=== PATIENT | female | born 1950 | race Caucasian/White ===

== ENCOUNTER → 2021-04-17 15:07 | Outpatient (CLI) | payer OTHER, MEDICARE, SELFPAY ==
--- NOTE | ~2021-04-17 | MM_ITS ---
EXAMINATION: MM screening rodrigo BI w benedicto HISTORY: Screening mammogram TECHNIQUE: Craniocaudal and mediolateral oblique 3-D tomosynthesis images were obtained and synthetic 2-D images were generated. CAD analysis was submitted and interpreted. COMPARISON: 12/07/2011 bilateral screening mammogram BREAST PARENCHYMAL COMPOSITION: The breasts are almost entirely fatty. FINDINGS: There is no evidence of suspicious mass, calcification, or architectural distortion to sugg est malignancy in either breast. There has been no suspicious interval change. IMPRESSION: 1. No mammographic evidence of malignancy. 2. Recommend routine screening mammography in one year. BI-RADS Category 1: Negative Reviewed, dictated and finalized at location A. TY LEAD
== END ==
PROVIDERS: PCP Family Medicine; Visit Provider Family Medicine
DX: Z12.31 Encounter for screening mammogram for malignant neoplasm of breast (principal)
CPT/HCPCS: 77063; 77067

== ENCOUNTER → 2023-06-12 10:34 | Outpatient (CLI) | payer OTHER, MEDICARE, SELFPAY ==
--- NOTE | ~2023-06-12 | XR_ITS ---
XR chest 2V 06/12/2023 10:50 Indication: Wheezing Procedure: 2 view chest Comparison: 12/03/2017 Findings: There is a masslike density overlying the right hilum. Heart size normal. Left lung clear. No pleural effusion, edema or pneumothorax. Impression: 1: Masslike density overlying the right hilum. Correlation with CT chest with contrast recommended. Reviewed, dictated and finalized at location B. L RULE INSPECTOR Impression: 1: Masslike density overlying the right hilum. Correlation with CT chest with c ontrast recommended.
== END ==
PROVIDERS: PCP Nurse Practitioner Adult Health; Visit Provider Nurse Practitioner Adult Health
DX: R06.2 Wheezing (principal); R91.8 Other nonspecific abnormal finding of lung field
CPT/HCPCS: 71046

== ENCOUNTER 2023-06-20 07:30 | Outpatient (CLI) | payer OTHER, MEDICARE, SELFPAY ==
--- NOTE | ~2023-06-20 | CT_ITS ---
EXAMINATION: CT chest high resolution wo co DATE: 06/20/2023 07:50 INDICATION: Masslike density overlying right hilum reported on 06/12/2023 2 view chest radiograph. Cou gh for 1.5 weeks. Wheezing. TECHNIQUE: Computed tomography (CT) of the chest was performed without intravenous contrast. Automate d exposure control and iterative reconstruction technique were employed. Exam dose: 214.12 mGy-cm to dinesh exam DLP. COMPARISON: None FINDINGS: Borderline heart size. Thoracic aortic calcification; no thoracic aortic aneurysm. No hilar or mediastinal mass lesion or lymphadenopathy is detected. There is minimal atelectasis at the lung bases. 9.5 mm probable cyst of the lateral segment of the left hepatic lobe. Indeterminate approximately 10 x 16 mm hypoattenuating lesion of the peripheral lateral aspect of the right hepatic lobe. Normal morphology of the adrenal glands. Diffuse idiopathic skeletal hyperostosis of the thoracic spine. Degenerative disc disease in the incl uded lower cervical spine. No suspicious osteolytic or osteoblastic lesions. IMPRESSION: Minimal atelectasis at the lung bases Diffuse idiopathic skeletal hyperostosis of the thoracic spine 9.5 mm probable left hepatic cyst Indeterminate approximately 10 x 15 mm hypoattenuation of the lateral aspect of the right hepatic lob e; consider CT abdomen with IV contrast material. Reviewed, dictated and finalized at Location A. Reviewed, dictated and finalized at location L. CULATOR OPERATOR IMPRESSION: Minimal atelectasis at the lung bases Diffuse idiopathic skeletal hyperostosis of the thoracic spine 9.5 mm probable left hepatic cyst Indeterminate approximately 10 x 15 mm hypoattenuation of the lateral aspect of the right hepatic lobe; consider CT abdomen with IV contrast material.
== END 2023-06-20 07:31 | disposition home or self-care (01) ==
PROVIDERS: PCP Family Medicine; Visit Provider Nurse Practitioner Adult Health
DX: R91.8 Other nonspecific abnormal finding of lung field (principal); M48.14 Ankylosing hyperostosis [Forestier], thoracic region
CPT/HCPCS: 71250

== ENCOUNTER 2023-07-10 08:30 | Outpatient (CLI) | payer OTHER, MEDICARE, SELFPAY ==
--- NOTE | ~2023-07-10 | CT_ITS ---
EXAMINATION: CT chest abdomen w con INDICATION: Other nonspecific finding of the lung field, liver lesion on recent chest CT TECHNIQUE: Computed tomographic images of the chest and abdomen were obtained after the administratio n of 100 cc of Omnipaque 350 intravenous contrast. The dose-length product (DLP) was 631.68 mGy-cm. A utomated exposure control and iterative reconstruction technique were employed. COMPARISON: 06/20/2023 FINDINGS: Chest CT: There is mild dependent atelectasis of the lungs. The lungs are free of focal airspace opac ities. No pleural effusion or pneumothorax. No pathologically enlarged thoracic lymph nodes are ident ified. The heart size is normal. There is a 3 mm nodule of the left lower lobe on image 45. Abdomen CT: There is a 14 mm subcapsular cyst in the right hepatic lobe. An 11 mm cyst is noted in th e left hepatic lobe. The spleen, pancreas, gallbladder, and adrenal glands are normal. There is an 11 mm cyst of the right kidney. The left kidney is unremarkable. There are no pathologically enlarged a bdominal lymph nodes. No free intraperitoneal gas or evidence of bowel obstruction. There is question able wall thickening of the distal descending colon. There is severe lumbar spondylosis at L2-3. IMPRESSION: 1. Mild atelectasis of the lungs. 2. Cysts of the liver. 3. Questionable wall thickening of the distal descending colon. Recommend correlation with colonoscop y history or direct visualization if not performed recently. Reviewed, dictated and finalized at location B. K RATING IMPRESSION: 1. Mild atelectasis of the lungs. 2. Cysts of the liver. 3. Questionable wall thickening of the distal descending colon. Recommend corre lation with colonoscopy history or direct visualization if not performed recent ly.
[2023-07-10 08:57] LABS: Estimated Glomerular Filt Rate > 60
== END 2023-07-10 08:31 | disposition home or self-care (01) ==
LOC: ANHIMG 08:33
PROVIDERS: PCP Family Medicine; Visit Provider Nurse Practitioner Adult Health
DX: R91.8 Other nonspecific abnormal finding of lung field (principal); K76.89 Other specified diseases of liver
CPT/HCPCS: 71260; 74160; Q9967

== ENCOUNTER 2023-09-12 09:47 | Outpatient (CLI) | payer OTHER, MEDICARE, SELFPAY ==
--- NOTE | 2023-09-12 10:34 | ECG_ITS ---
SEE SCANNED COPY FOR CONFIRMED REPORT MTDD
[2023-09-12 10:41] LABS: Basophils Absolute Auto 0.1 K/mm3 (0.0-0.1); Basophils Percent Auto 0.8 % (0.2-1.2); Eosinophils Absolute Auto 0.2 K/mm3 (0-0.3); Eosinophils Percent Auto 2.7 % (0-4.4); Hemoglobin 14.9 g/dL (12.0-15.0); Immature Granulocyte Absolute 0.04 K/mm3 (0.00-0.031); Immature Granulocyte Percent A 0.5 % (0-0.5); Lymphocytes Absolute Auto 2.53 K/mm3 (0.9-3.2); Lymphocytes Percent Auto 32.6 % (18.3-44.2); Mean Corpuscular HGB Conc 31.7 g/dl (32-36); Mean Corpuscular Hemoglobin 29.9 pg (26-34); Mean Corpuscular Volume 94.4 fl (80-100); Mean Platelet Volume 9.5 fl (7.4-10.4); Monocytes Absolute Auto 0.5 K/mm3 (0.1-0.6); Monocytes Percent Auto 6.9 % (2.6-8.5); Neutrophils Absolute Auto 4.4 K/mm3 (1.3-6.7); Neutrophils Percent Auto 56.5 % (45.5-73.1); Platelet Count Result 303 k/mm3 (150-375); Red Blood Count 4.98 M/mm3 (4.2-5.4); Red Cell Distribution Width 13.5 % (11.5-14.5); White Blood Count 7.8 K/mm3 (4.5-10.0)
[2023-09-12 10:56] LABS: Anion Gap 8 mmol/L (4-12); Blood Urea Nitrogen 16 mg/dL (7-17); Calcium 10.6 mg/dL (8.4-10.2); Carbon Dioxide 31 mmol/L (22-30); Chloride 103 mmol/L (98-107); Estimated Glomerular Filt Rate > 60; Glucose 111 mg/dL (65-110); Potassium 4.3 mmol/L (3.4-5.0); Sodium 142 mmol/L (137-145)
[2023-09-12 12:26] LABS: Appearance Urine Clear (Clear); Bacteria Urine None Seen /hpf; Bilirubin Urine Negative (Negative); Blood Urine Negative (Negative); Color Urine Dark Yellow (Yellow); Glucose Urine UA Negative (Negative); Ketones Urine Trace mg/dL (Negative); Leukocyte Esterase Ur 1+ LEU/UL (Negative); Nitrate Urine Negative (Negative); Non Pathogenic Casts 0-2; Protein Urine Negative (Negative); RBC Urine 0-2 /hpf (0-2); Specific Grav Ur 1.025 (1.001-1.035); Squamous Epithelial Cell Urine Occasional /hpf (Few); Urobilinogen Urine 0.2 mg/dL (<2.0); pH Urine 5.5 (5.0-9.0)
[2023-09-12 12:47] LABS: Add Urine Microscopic? YES
== END 2023-09-12 09:48 | disposition home or self-care (01) ==
LOC: ANHLAB 09:53
PROVIDERS: PCP Family Medicine; Visit Provider Nurse Practitioner Family
DX: R53.83 Other fatigue (principal); I10 Essential (primary) hypertension; K76.9 Liver disease, unspecified; R05.9 Cough, unspecified
CPT/HCPCS: 36415; 80048; 81001; 85025; 87086; 93005

== ENCOUNTER 2023-10-10 07:00 | Day surgery (SDC) | payer OTHER, MEDICARE, SELFPAY ==
[2023-07-17 08:28] VITALS: BMI 36.9
[2023-09-25 14:21] VITALS: BMI 37.6
--- NOTE | 2023-10-09 14:53 | WPDANESEPPF ---
Anes - Initial Pre Proc Eval Procedure: Operation Date: 10/10/23 09:30 Proposed Procedures p Diagnostic Colonoscopy - Claudy Zhao MD Date/Time: 10/09/23 14:53 Surgeon: Claudy Zhao MD Pre Op Diagnosis: Disease of Intestine, Unspecified Patient Data Age: 72 Gender: F Height: 1.52 m Weight: 87.5 kg Allergies Allergy/AdvReac Type Severity Reaction Status Date / Time No Known Allergies Allergy Unknown Verified 10/10/23 08:01 Home Medications Medication Instructions Recorded Confirmed Type albuterol sulfate 90 mcg/actuation 2 inh inhalation Q4H PRN shortness 04/03/23 10/10/23 Rx aerosol inhaler (ProAir HFA) of breath or wheezing #6.7 grams ascorbic acid (vitamin C) 500 mg 500 mg PO DAILY 09/25/23 10/10/23 History capsule calcium 500 mg tablet 500 mg PO DAILY 09/25/23 10/10/23 History ibuprofen 400 mg tablet 400 mg PO Q6H PRN Pain 09/25/23 10/10/23 History yizefitv-jbk-abhd 18 mg-FA 400 1 tablet PO DAILY 09/25/23 10/10/23 History mcg-calcium 500 mg-vit K 50 mcg tablet (Women's Multivitamin) Patient hx anesthesia problems: none Family hx anesthesia problems: none Results Review: All pre-operative results and documents have been reviewed as part of the pre-operative evaluation. [facility] Past Medical History Medical History (Updated 10/10/23 @ 08:50 by Gustabo Galicia, ) Colon wall thickening Cough History of fracture of left ankle 2018 Mass of hilum Other fatigue Primary osteoarthritis of right knee Wheezing Surgical History Surgical History History of total left knee replacement 10/27/2014 History of total right hip arthroplasty 10/15/2012 Presence of left artificial knee joint Presence of right artificial hip joint Family History Family History Sibling Family history of premature coronary heart disease Other Cerebrovascular accident Family history of arthritis Family history of malignant neoplasm Social History Social History Smoking status: Never smoker Alcohol intake: current Substance use type: does not use Living arrangements: with family Occupation/Education: occupation 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
[2023-10-10 08:04] VITALS: BP 159/80; PULSE 72; RESP 16; TEMP 36.4; O2SAT 97
[2023-10-10] MEDS: LACTATED RINGERS 1,000 ML 150 ML IV CONT (08:31)
--- NOTE | 2023-10-10 09:05 | PM.HPGS ---
History of Present Illness History of Present Illness Consent: Risks, benefits, and alternatives have been discussed and questions answered. Patient agrees to proceed with procedure. Chief complaint: Disease of Intestine, Unspecified Narrative: Lanie Ho is a 72 year old female referred for colonoscopy. Recent colonoscopy suggested thickening of the descending colon. Patient reports that she became somewhat short of breath. seen and evaluated by CT scan which raised the question of thickening of the colon. Patient notes occasional loose stools but has no bleeding. No abdominal pain. Weight has remained stable. In general her bowel habits are normal. Patient is identified as having benign liver cysts on CT scan. Patient reports that her shortness of breath is now improved and is back to baseline. She was given no specific diagnosis for her shortness of breath. Review of Systems Review of Systems: All systems reviewed & are unremarkable except as noted in HPI and below PMFSH Past Medical History Medical History (Updated 10/10/23 @ 09:07 by Claudy Zhao MD) Colon wall thickening Cough History of fracture of left ankle 2018 Mass of hilum Other fatigue Primary osteoarthritis of right knee Wheezing Surgical History Surgical History History of total left knee replacement 10/27/2014 History of total right hip arthroplasty 10/15/2012 Presence of left artificial knee joint Presence of right artificial hip joint Family History Family History Sibling Family history of premature coronary heart disease Other Cerebrovascular accident Family history of arthritis Family history of malignant neoplasm Social History Social History Smoking status: Never smoker Alcohol intake: current Substance use type: does not use Living arrangements: with family Occupation/Education: occupation 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[employer] Gender identity (if verbalized by the patient): Female Spiritual care concerns: No Meds Home Medications and Allergies Home Medications Medication Instructions Recorded Confirmed Type albuterol sulfate 90 mcg/actuation 2 inh inhalation Q4H PRN shortness 04/03/23 10/10/23 Rx aerosol inhaler (ProAir HFA) of breath or wheezing #6.7 grams ascorbic acid (vitamin C) 500 mg 500 mg PO DAILY 09/25/23 10/10/23 History capsule calcium 500 mg tablet 500 mg PO DAILY 09/25/23 10/10/23 History ibuprofen 400 mg tablet 400 mg PO Q6H PRN Pain 09/25/23 10/10/23 History vsgwxezx-rjk-uxht 18 mg-FA 400 1 tablet PO DAILY 09/25/23 10/10/23 History mcg-calcium 500 mg-vit K 50 mcg tablet (Women's Multivitamin) Allergies Allergy/AdvReac Type Severity Reaction Status Date / Time No Known Allergies Allergy Unknown Verified 10/10/23 08:01 Vital Signs Vital Signs - 24 hr 10/10/23 08:04 Temperature 97.5 F L Pulse Rate 72 Respiratory Rate 16 Blood Pressure 159/80 H Pulse Oximetry 97 Oxygen Delivery Room Air Exam Narrative: Physical exam reveals patient to be alert. Vital signs stable. HEENT exam is unremarkable. Patient is anicteric. Lungs are clear to auscultation and percussion is without murmur or extra sounds. Abdomen bowel sounds are present soft nontender with no organomegaly. Digital external rectal exam normal. Assessment and Plan Assessment and plan (1) Screening for colon cancer: Code(s): Z12.11 - Encounter for screening for malignant neoplasm of colon Status: Acute Assessment and Plan: His for neoplasia screening performed. Previous exams were unremarkable. (2) Abnormal CT scan, colon: Code(s): R93.3 - Abnormal findings on diagnostic imaging of other parts of digestive tract Status: Acute Assessment and Plan: Thickening to
[2023-10-10 10:15] VITALS: BP 102/75; PULSE 85; RESP 14; O2SAT 99
[2023-10-10 10:25] VITALS: BP 111/74; PULSE 79; RESP 16; O2SAT 97
--- NOTE | 2023-10-10 14:11 | WPDANESPN ---
Anes - Prog Note Post-Op Date/Time: 10/10/23 14:11 Cardiovascular status: normal Respiratory status: normal Airway patency: baseline Mental status: baseline Post-Op hydration status: normal Vital Signs: Last Vital Signs Temp 36.4 C L 10/10/23 08:04 Pulse 79 10/10/23 10:25 Resp 16 10/10/23 10:25 BP 111/74 10/10/23 10:25 Pulse Ox 97 10/10/23 10:25 O2 Del Method Room Air 10/10/23 10:25 Pain Score (VAS): 0 I/O: Intake & Output 10/09/23 10/10/23 10/10/23 23:59 07:59 15:59 Intake Total 350 Balance 350 Post-procedural complaints: none Patient Feedback: Patient satisfied with anesthetic care. Other Findings: Patient vital signs back to baseline. Patient denies nausea and vomiting. Patient's pain under control. Patient OK for discharge.
== END 2023-10-10 10:40 | disposition home or self-care (01) ==
PROVIDERS: PCP Family Medicine; Visit Provider Internal Medicine Gastroenterology
PROC: 0DJD8ZZ Inspection of Lower Intestinal Tract, Via Natural or Artificial Opening Endoscopic (ICD-10-PCS; CPT 45378; principal; 2023-10-10 09:30)
DX: R93.3 Abnormal findings on diagnostic imaging of other parts of digestive tract (principal); K57.30 Diverticulosis of large intestine without perforation or abscess without bleeding; K64.8 Other hemorrhoids
CPT/HCPCS: 45378

== ENCOUNTER 2023-10-23 07:49 | Outpatient (CLI) | payer OTHER, MEDICARE, SELFPAY ==
[2023-10-23 09:19] LABS: INR 0.9; Prothrombin Time 12.8 Seconds (11.1-14.7)
[2023-10-23 09:20] LABS: Partial Thromboplastin Time 26.4 Seconds (22.3-36.8)
[2023-10-23 09:22] LABS: Albumin Level 4.3 g/dL (3.5-5.1)
[2023-10-23 09:30] LABS: Urine Cotinine NEGATIVE
[2023-10-23 10:39] LABS: MRSA (PCR) NOT DETECTED (NOT DETECTE)
[2023-10-23 10:44] LABS: Hemoglobin A1C 5.9 % (<5.7)
== END 2023-10-23 07:50 | disposition home or self-care (01) ==
LOC: ANHSURGERY 07:54
PROVIDERS: PCP Family Medicine; Visit Provider Orthopaedic Surgery
DX: Z01.818 Encounter for other preprocedural examination (principal); M17.11 Unilateral primary osteoarthritis, right knee
CPT/HCPCS: 80307; 82040; 83036; 85610; 85730; 87641

== ENCOUNTER 2023-11-06 00:27 | Day surgery (SDC) | payer OTHER, MEDICARE, SELFPAY ==
[2023-10-23 08:01] VITALS: BMI 37.0
[2023-10-23 08:08] VITALS: BP 173/74; PULSE 62; RESP 16; TEMP 37.1; O2SAT 95
--- NOTE | 2023-10-23 08:18 | PC.NURSE ---
Report to the Outpatient Waiting Room, entrance under the green pavilion located off [facility], at time __8:30AM on date __11/06/23 . Planned Procedure Time: ___10:30AM . Time changes happen often and if your time is changed the preop area will call you the afternoon before. - You and your visitor will be asked to self-screen and do not enter if you have any COVID symptoms. - A mask is optional within the hospital at this time. Patients may have clear liquids (water, carbonated beverages, clear teas, apple juice) until 3 hours prior to surgery with a maximum of 20 ounces. - No food from midnight until time of surgery. Take the following medications with a SIP of water the morning of surgery: ___ALBUTEROL INHALER NEEDED DO NOT STOP ANY OF YOUR OTHER PRESCRIPTION MEDICATIONS PRIOR TO SURGERY ?EXCEPT THE FOLLOWING Medications to discontinue per physician ___HOLD IBUPROFEN/NSAID 7 DAYS PRE-OP- LAST DOSE 10/29/23 HOLD ALL VITAMINS/SUPPLEMENTS 3 DAYS PRE-OP PER ANESSTHESIA- LAST DOSE 11/02/23 Please no make-up, nail thai, hairspray, perfume, deodorant, or body powder the day of surgery. No jewelry (including any body piercings) or valuables the day of surgery, leave them at home. Please take a shower or bath the night before, or the morning of, surgery with an antibacterial soap. Wear comfortable, loose fitting clothing. - Jewelry must be removed prior to entering the operating room. Rings and piercings that are not removed may be cut off. - The hospital will not accept responsibility for valuables. - Please leave all valuables, including medications, at home the day of surgery. If you are going home after surgery, a licensed goat driver must drive you home. - NO public transportation without another adult if you receive anesthesia. - We recommend that an adult stay with you for 24 hours following discharge. - We also recommend that you do not drive, make important decision, drink alcoholic beverages, or take any drugs that were not prescribed by your health care provider for at least 24 hours after your discharge time. Follow any additional instructions given to you from your surgeon. If you or anyone in your household have experienced Covid symptoms in the past week, please notify your surgeon or the nurse liaison at the phone number below for possible testing. Telephone instructions given to ____PATIENT and asked if any additional questions and then verbalized understanding. Patient advised to call surgeon office or pre surgery nurse liaison [phone] if any additional questions.
[2023-11-06] VITALS (21 sets, daily range): BP systolic 116–164; BP diastolic 56–91; PULSE 64–90; RESP 12–19; TEMP 36.2–36.6; O2SAT 92–100
--- NOTE | ~2023-11-06 | XR_ITS ---
EXAMINATION: [id number] DATE: 11/06/2023 12:45 INDICATION: Total right knee arthroplasty. Postop. TECHNIQUE: 2 views of right knee were obtained. COMPARISON: None. FINDINGS: There is a total right knee arthroplasty without patellar resurfacing in near-anatomic alig nment. No fracture. There is gas in the knee joint and soft tissues, consistent with recent surgery. Anterior skin rozina are noted. IMPRESSION: 1. Total right knee arthroplasty in near-anatomic alignment. Reviewed, dictated and finalized at location A.
--- NOTE | 2023-11-06 07:10 | WPDHPUPDATE1 ---
History and Physical Update Update Date/Time: 11/06/23 07:10 History and Physical has been reviewed, including an updated exam of the patient. There are NO changes in the patient's condition. Risks, benefits, and alternatives have been discussed and questions answered. Patient agrees to proceed with procedure.
[2023-11-06] MEDS: ACETAMINOPHEN 500 MG TABLET 1000 MG PO (09:25)
[2023-11-06] MEDS: TRANEXAMIC ACID 1,000MG/ISO100 1,000 MG/100 ML BAG 200 MG IVPB (09:30)
[2023-11-06] MEDS: LACTATED RINGERS 1,000 ML 30 ML IV CONT ×2 (09:30→12:13)
--- NOTE | 2023-11-06 09:34 | WPDANESEPPF ---
Anes - Initial Pre Proc Eval Procedure: Operation Date: 11/06/23 10:30 Proposed Procedures p Right Total Knee Arthroplasty - Dominick Baron MD Date/Time: 11/06/23 09:34 Surgeon: Dominick Baron MD Pre Op Diagnosis: right knee oa Patient Data Age: 73 Gender: F Height: 1.52 m Weight: 84.4 kg Last Vital Signs Temp 37.1 C 10/23/23 08:08 Pulse 62 10/23/23 08:08 Resp 16 10/23/23 08:08 BP 173/74 H 10/23/23 08:08 Pulse Ox 95 10/23/23 08:08 O2 Del Method Room Air 10/23/23 08:08 Allergies Allergy/AdvReac Type Severity Reaction Status Date / Time No Known Allergies Allergy Verified 11/06/23 08:56 Home Medications Medication Instructions Recorded Confirmed Type albuterol sulfate 90 mcg/actuation 2 inh inhalation Q4H PRN shortness 04/03/23 11/01/23 Rx aerosol inhaler (ProAir HFA) of breath or wheezing #6.7 grams ascorbic acid (vitamin C) 500 mg 500 mg PO DAILY 09/25/23 11/06/23 History capsule ibuprofen 400 mg tablet 600 mg PO Q6H PRN Pain 09/25/23 11/06/23 History nuwkpjar-qof-tbjl 18 mg-FA 400 1 tablet PO DAILY 09/25/23 11/06/23 History mcg-calcium 500 mg-vit K 50 mcg tablet (Women's Multivitamin) acetaminophen 500 mg tablet 1,000 mg PO Q6H PRN Pain 10/23/23 11/01/23 History (Acetaminophen Extra Strength) calcium 600 mg capsule 600 mg PO BID 10/23/23 11/06/23 History Patient hx anesthesia problems: none Family hx anesthesia problems: none Results Review: All pre-operative results and documents have been reviewed as part of the pre-operative evaluation. [facility] Past Medical History Medical History Colon wall thickening Cough History of fracture of left ankle 2018 Mass of hilum Other fatigue Primary osteoarthritis of right knee Wheezing Surgical History Surgical History History of total left knee replacement 10/27/2014 History of total right hip arthroplasty 10/15/2012 Presence of left artificial knee joint Presence of right artificial hip joint Family History Family History Sibling Family history of premature coronary heart disease Other Cerebrovascular accident Family history of arthritis Family history of malignant neoplasm Social History Social History Smoking status: Never smoker Alcohol intake: current Substance use type: does not use Living arrangements: with family Additional living arrangements comments: Occupation/Education: occupation 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 Informed Consent: The patient's anesthetic plan and its attendant risks and benefits were discussed with the patient/family/POA. Questions were solicited and answers provided to the satisfaction of the patient/family/POA.
--- NOTE | 2023-11-06 10:10 | WPDANESPNB ---
Anes - Peripheral Nerve Block Date/Time: 11/06/23 10:10 I have discussed with the patient/family/POA the placement of a peripheral nerve block for post-operative pain management, including associated risks, benefits, complications, and side effects. Alternative methods of post-operative analgesia were detailed. Questions were solicited and answers provided to the satisfaction of the patient/family/POA. Time-Out: A pre-procedural Time-Out was completed immediately before starting the procedure and confirmed: Patient Identification, Site, Procedure, Patient Position and the Availability of Requisite Equipment. Clinical Indications: Acute post-operative pain management requested by the operative surgeon. Nerve Block Insertion Note Anes-nerve block: adductor canal Patient position: supine Skin prep: chlorhexidine Needle: 22 gauge, stimulating, insulated echogenic needle. Needle length: 80 mm Technique: ultrasound Injectate: bupivacaine 0.5% with epi 5 mcg/ml (30cc - no epi) Observations: tolerated well Complications: none Procedure start time:: 1002 Procedure end time:: 1006
[2023-11-06] MEDS: ceFAZolin 2 GM/D5W 50 ML 2 GM/50 ML BAG IVPB ×2 (10:13→18:15)
[2023-11-06] MEDS: SODIUM CHLORIDE 0.9% IV 37.7 ML, MORPHINE SULFATE INJ (*CRX) 2 MG, ROPivacaine HCL 1% 2... INFILTRATE (10:48)
[2023-11-06] MEDS: TRANEXAMIC ACID 1,000 MG/10 ML AMPUL 1000 MG IV PUSH (11:24)
--- NOTE | 2023-11-06 12:22 | W.PM.PROC2 ---
Procedure Note - Detailed Date of Procedure 11/06/23 Pre-op Diagnosis right knee oa Post-op Diagnosis Same Procedure Performed R TKA Surgeon Dominick Baron MD Anesthesia General Description of Procedure THE RIGHT KNEE WAS PREPPED AND DRAPED IN THE STERILE FASHION. THERE WAS A 10 DEGREE FLEXION CONTRACTURE. A MIDLINE SKIN INCISION WAS MADE. A MEDIAL PARAPATELLAR ARTHROTOMY WAS MADE. THE PATELLA WAS EVERTED. THERE WAS TRICOMPARTMENT DJD. THERE WAS MINIMAL PATELLA DJD. AN INTRAMEDULLARY LIA WAS PLACED IN THE FEMUR. A DISTAL FEMORAL CUT WAS MADE IN 5 DEGREES OF VALGUS REMOVING APPROXIMATELY 9 MM OF BONE FROM THE DISTAL FEMUR. THE FEMUR WAS SIZED TO 62.5. A 62.5 FEMORAL CUTTING BLOCK WAS PLACED IN 3 DEGREES OF EXTERNAL ROTATION AND IN ALIGNMENT WITH RICARDO'S LINE AND THE TRANSEPICONDYLAR AXIS. ANTERIOR POSTERIOR AND CHAMFER CUTS WERE MADE. THE CUTS WERE EXCELLENT. NEXT AN INTRAMEDULLARY CUTTING GUIDE WAS PLACED IN THE TIBIA. A TRANS TIBIAL CUT WAS MADE ALONG THE LONG AXIS OF THE TIBIA. APPROXIMATELY 10 MM OF BONE WAS REMOVED FROM THE HIGH SIDE OF THE TIBIA. THE TIBIA WAS THEN PLANED TO A SMOOTH SURFACE. POSTERIOR FEMORAL OSTEOPHYTES WERE REMOVED FROM THE FEMORAL CONDYLES. A 63 TIBIAL TRIAL WAS PLACED IN ALIGNMENT WITH THE 1/3 MEDIAL ASPECT OF THE TIBIAL TUBERCLE. THEN A 62.5 FEMORAL TRIAL COMPONENT WAS PLACED. BOTH HAD EXCELLENT FITS. EVENTUALLY A 10 MM POLYETHYLENE TRIAL COMPONENT WAS PLACED. THE KNEE WAS TAKEN THROUGH A RANGE OF MOTION. THE KNEE CAME OUT TO FULL EXTENSION. THERE WAS NO ABNORMAL TILT TO THE PATELLA. THERE WAS GOOD A/P AND VARUS/VALGUS STABILITY. THERE WAS NO EXCESSIVE ROLL BACK WITH FLEXION. THE TRIAL COMPONENTS WERE REMOVED. THEN A 62.5 FEMORAL COMPONENT AND 63 TIBIAL COMPONENT WITH A 10 POLYETHYLENE COMPONENT WERE CEMENTED INTO PLACE. ONCE THE CEMENT WAS HARD THE KNEE WAS TAKEN THROUGH A ROM AGAIN AND FOUND TO BE STABLE WITH NO PATELLA TILT NO EXCESSIVE ROLL BACK WITH FLEXION AND GOOD STABILITY WITH COMPLETE AND FULL EXTENSION. THE KNEE WAS IRRIGATED WITH STERILE BETADINE AND WATER FOR ABOUT 3 MINUTES. THE BLEEDERS WERE CAUTERIZED. THE ARTHROTOMY WAS REPAIRED WITH NUMBER 1 VICRYL. THE SUB CUTANEOUS LAYER WITH 2-0 VICRYL AND THE SKIN WITH MARY. THE WOUND WAS WASHED AND A STERILE DRESSING WAS APPLIED. PATIENT WAS EXTUBATED. Estimated Blood Loss -100 Pathology None sent Complications No immediate complications Condition Stable Disposition PACU
[2023-11-06] MEDS: fentaNYL CITRATE INJ (*CRX) 100 MCG/2 ML VIAL 25 MCG IV PUSH ×4 (13:18→13:34)
[2023-11-06] MEDS: ONDANSETRON INJ 4 MG/2 ML VIAL IV PUSH (14:06)
--- NOTE | 2023-11-06 15:32 | ADMGEN ---
This patient, Lanie Ho, was admitted to [facility] S[facility] Room 305-02. Patient/family oriented to hospital policies and general routines including ID bracelet, bed and alarms, visiting hours, pain management, procedures, bathroom and other care routines, personal items, smoking policy, room service/diet, and visiting hours. Information on how to activate the Rapid Response Team has been discussed. Patient/Family are encouraged to report perceived risks to care and to ask questions if they do not understand what they are told or what they should do.
[2023-11-06] MEDS: KETOROLAC 15 MG/ML VIAL (*BKC) IV PUSH (17:20)
[2023-11-06] MEDS: CALCIUM CARBONATE (OSCAL) 500 MG TABLET PO (17:21)
[2023-11-06] MEDS: SENNA/DOCUSATE SODIUM TABLET 2 TAB PO (17:21)
[2023-11-06] MEDS: FAMOTIDINE 20 MG TABLET PO (21:39)
[2023-11-06] MEDS: ASPIRIN 325 MG ENTERIC TABLET PO (21:40)
[2023-11-07] MEDS: KETOROLAC 15 MG/ML VIAL (*BKC) IV PUSH ×3 (00:30→11:27)
[2023-11-07] MEDS: ceFAZolin 2 GM/D5W 50 ML 2 GM/50 ML BAG IVPB ×2 (02:59→09:47)
[2023-11-07 05:30] VITALS: BP 148/57; PULSE 66; RESP 16; TEMP 36.6; O2SAT 96
[2023-11-07 07:14] LABS: Basophils Percent Auto 0.2 % (0.2-1.2); Eosinophils Percent Auto 0.1 % (0-4.4); Hematocrit 38.2 % (37.0-47.0); Hemoglobin 12.4 g/dL (12.0-15.0); Immature Granulocyte Absolute 0.08 K/mm3 (0.00-0.031); Immature Granulocyte Percent A 0.5 % (0-0.5); Lymphocytes Absolute Auto 1.51 K/mm3 (0.9-3.2); Lymphocytes Percent Auto 9.3 % (18.3-44.2); Mean Corpuscular HGB Conc 32.5 g/dl (32-36); Mean Corpuscular Hemoglobin 30.3 pg (26-34); Mean Corpuscular Volume 93.4 fl (80-100); Mean Platelet Volume 9.6 fl (7.4-10.4); Monocytes Percent Auto 5.9 % (2.6-8.5); Neutrophils Absolute Auto 13.6 K/mm3 (1.3-6.7); Platelet Count Result 277 k/mm3 (150-375); Red Blood Count 4.09 M/mm3 (4.2-5.4); Red Cell Distribution Width 13.2 % (11.5-14.5); White Blood Count 16.2 K/mm3 (4.5-10.0)
[2023-11-07 07:27] LABS: Anion Gap 9 mmol/L (4-12); Blood Urea Nitrogen 14 mg/dL (7-17); Calcium 8.9 mg/dL (8.4-10.2); Carbon Dioxide 25 mmol/L (22-30); Chloride 106 mmol/L (98-107); Estimated CRCL calculation 54 ml/min; Estimated Glomerular Filt Rate > 60; Glucose 109 mg/dL (65-110); Potassium 3.9 mmol/L (3.4-5.0); Sodium 140 mmol/L (137-145)
[2023-11-07] MEDS: FAMOTIDINE 20 MG TABLET PO (08:15)
[2023-11-07] MEDS: ACETAMINOPHEN 500 MG TABLET 1000 MG PO (08:15)
[2023-11-07] MEDS: SENNA/DOCUSATE SODIUM TABLET 2 TAB PO (08:15)
[2023-11-07] MEDS: polyethylene glycoL 3350 17 GM POWD.PACK PO (08:15)
[2023-11-07] MEDS: ASCORBIC ACID 500 MG TABLET PO (08:15)
[2023-11-07] MEDS: ASPIRIN 325 MG ENTERIC TABLET PO (08:15)
[2023-11-07] MEDS: CALCIUM CARBONATE (OSCAL) 500 MG TABLET PO (08:15)
[2023-11-07 08:24] VITALS: BP 116/60; PULSE 61; RESP 16; TEMP 36.2; O2SAT 100
--- NOTE | 2023-11-07 11:36 | PM.PNORT ---
Progress Note: A&P Assessment and Plan (1) S/P total knee arthroplasty: Qualifiers: Laterality: right Qualified Code(s): Z96.651 - Presence of right artificial knee joint Code(s): Z96.659 - Presence of unspecified artificial knee joint Status: Acute Assessment and Plan: POD #1 : Right TKA Continue PT/OT. WBAT. Walker. HIGH FALL RISK. Continue pain control. Ice Knee. Protect skin. DVT prophylaxis with Aspirin. SCDs. Incentive Spirometry Use reviewed. Monitor Dressing. Change prior to discharge. Bowel Regimen. Dispo: Home with Home Health pending progress with PT/OT Plan Reviewed history, exam, radiographs and current labs with attending MD and covering surgeon, Dr. Baron, who agrees with current plan as indicated above. No further recommendations from Dr. Baron at this time. Subjective Subjective Date/Time Seen: 11/07/23 11:36 Post Op day: 1 Interval history: POD #1: Right TKA Patient doing very well. Pain well controlled. Fatigued from being out of bed in the chair for 5 hours, but overall feeling confident for discharge hopefully today. No new concerns. Review of Systems Review of Systems: All systems reviewed & are unremarkable except as noted in HPI and below Constitutional: Constitutional: Denies fever(s) and Denies headache(s) ENT: Denies headache(s) Cardiovascular: Cardiovascular: Denies chest pain, Denies diaphoresis, Denies palpitations and Denies dyspnea Respiratory: Respiratory: Denies dyspnea Gastrointestinal: Gastrointestinal: Denies abdominal pain, Denies constipation, Denies nausea and Denies vomiting Genitourinary: Genitourinary: Reports nocturia and Denies dysuria Musculoskeletal: Musculoskeletal: Reports arthralgias (Right Knee ) and Reports joint swelling (Right Knee ) Neurologic: Denies headache(s) Endocrine: Endocrine: Denies palpitations Exam Const: General: comfortable and no acute distress Resp: Effort & Inspection: normal respiratory effort Cardio: Rate: regular rate Rhythm: regular rhythm GI: GI Palp: Yes Soft to palpation, No Tenderness to palpation present (GI) and No Guarding due to palpation present (GI) Skin: General skin exam: wounds noted Wounds: wounds noted Other: Incision c/d/i. No surrounding redness/warmth. No hematoma. Mild ecchymosis. No wound dehiscence Neuro: Cognition (Neuro): normal cognition Other: NV intact aside from block. Moves toes. Sensation intact to light touch. +ankle dorsiflexion/plantarflexion. Extrem: Right lower extremity: normal to inspection, knee Details: tenderness (diffuse, mild ) Location: of the patella, swelling (diffuse, consistent with surgical intervention ), abnormal ROM Details: pain with active ROM during, pain with passive ROM during and with range as follows (limited due to recent surgical intervention ); able to extend lower leg actively and ecchymosis (mild ), lower leg (Negative Brent's Sign ) Details: normal to inspection; no erythema and no tenderness, ankle (+ankle dorsiflexion/plantarflexion ) Details: normal to inspection, no edema and normal ROM; no tenderness, no swelling and no ecchymosis and foot Details: normal capillary refill, normal to inspection, vascular exam Details: dorsalis pedis pulse present and motor-sensory exam Details: light-touch normal; no tenderness Left lower extremity: normal to inspection Psych: Mental Status: mental status grossly normal Objective Data Vital Signs Vital Signs: Vital Signs - 24 hr 11/06/23 12:13 11/06/23 12:25 11/06/23 12:35 Temperature 36.2 C L Pulse Rate 89 76 77 Respiratory Rate 12 12 13 Blood Pressure 120/71 139/70 143/77 H Pulse Oximetry 97 97 98 Oxygen Delivery Simple Face Mask Simple Face Mask Simple Face Mask Oxygen Flow Rate 8 8 8 11/06/23 12:38 11/06/23 12:50 11/06/23 13:04 Temperature Pulse Rate 90 78 Respiratory Rate 19 14 Blood Pressure 164/72 H 158/73 H Pulse Oximetry 100 100
[2023-11-07 12:20] VITALS: BP 123/40; PULSE 66; RESP 16; TEMP 35.8; O2SAT 99
--- NOTE | 2023-11-07 12:39 | WPDANESPN ---
Anes - Prog Note Post-Op Date/Time: 11/07/23 12:39 Cardiovascular status: normal Respiratory status: normal Airway patency: baseline Mental status: baseline Post-Op hydration status: normal Vital Signs: Last Vital Signs Temp 35.8 C L 11/07/23 12:20 Pulse 66 11/07/23 12:20 Resp 16 11/07/23 12:20 BP 123/40 L 11/07/23 12:20 Pulse Ox 99 11/07/23 12:20 O2 Del Method Room Air 11/07/23 07:39 O2 Flow Rate 2 11/06/23 14:37 Pain Score (VAS): 07/27 I/O: Intake & Output 11/06/23 11/07/23 11/07/23 23:59 07:59 15:59 Intake Total 522 50 272 Balance 522 50 272 Laboratory Tests 11/07/23 06:23 11/07/23 06:23 11/07/23 06:23 WBC 16.2 H RBC 4.09 L Hgb 12.4 Hct 38.2 MCV 93.4 MCH 30.3 MCHC 32.5 RDW 13.2 Plt Count 277 MPV 9.6 Immature Gran % (Auto) 0.5 Neut % (Auto) 84.0 H Lymph % (Auto) 9.3 L [place] % (Auto) 5.9 Eos % (Auto) 0.1 Baso % (Auto) 0.2 Lymph # (Auto) 1.51 [place] # (Auto) 1.0 H Eos # (Auto) 0.0 Baso # (Auto) 0.0 Abs Immat Gran (auto) 0.08 H Absolute Neuts (auto) 13.6 H Absolute Nucleated RBC 0.000 Nucleated RBC % 0.0 Sodium 140 Potassium 3.9 Chloride 106 Carbon Dioxide 25 Anion Gap 9 BUN 14 Creatinine 0.80 Estim Creat Clear Calc 54 Estimated GFR > 60 Glucose 109 Calcium 8.9 Post-procedural complaints: none Patient Feedback: Patient satisfied with anesthetic care.
--- NOTE | 2023-11-07 13:47 | PM.DS ---
DS: Admitting Diagnosis Discharge Date 11/07/23 Admitting Diagnosis Right Knee DJD DS: Discharge Diagnosis Discharge Diagnosis (1) S/P total knee arthroplasty: Qualifiers: Laterality: right Qualified Code(s): Z96.651 - Presence of right artificial knee joint Code(s): Z96.659 - Presence of unspecified artificial knee joint Status: Acute Assessment and Plan: POD #1 : Right TKA Continue PT/OT. WBAT. Walker. HIGH FALL RISK. Continue pain control. Ice Knee. Protect skin. DVT prophylaxis with Aspirin. SCDs. Incentive Spirometry Use reviewed. Monitor Dressing. Change prior to discharge. Bowel Regimen. Dispo: Home with Home Health pending progress with PT/OT Plan Reviewed history, exam, radiographs and current labs with attending MD and covering surgeon, Dr. Baron, who agrees with current plan as indicated above. No further recommendations from Dr. Baron at this time. DS: Summary Hospital Course Reason for hospitalization: Right TKA Hospital Course: 73 year old female admitted s/p Right TKA for postoperative medical management, pain control and mobilization with PT/OT. Patient progressed well with PT/OT. Pain and vitals remained stable throughout. The patient has been cleared to be discharged home with home health at this time. All discharge care instructions reviewed at depth. New medications reviewed. Follow up planned for 3 weeks in the outpatient orthopedic clinic with Dr. Baron. Dr. Baron in agreement with safe discharge at this time. Status at Discharge Functional status at discharge: uses cane/walker Overall status at discharge: patient is progressing back to baseline Time Spent with Patient Time attestation: Total time spent providing and/or coordinating discharge services: Exam Const: General: comfortable and no acute distress Resp: Effort & Inspection: normal respiratory effort Cardio: Rate: regular rate Rhythm: regular rhythm Skin: General skin exam: wounds noted Wounds: wounds noted Other: Incision c/d/i. No surrounding redness/warmth. No hematoma. Mild ecchymosis. No wound dehiscence Neuro: Cognition (Neuro): normal cognition Other: NV intact aside from block. Moves toes. Sensation intact to light touch. +ankle dorsiflexion/plantarflexion. Extrem: Right lower extremity: normal to inspection, knee Details: tenderness (diffuse, mild ) Location: of the patella, swelling (diffuse, consistent with surgical intervention ), abnormal ROM Details: pain with active ROM during, pain with passive ROM during and with range as follows (limited due to recent surgical intervention ); able to extend lower leg actively and ecchymosis (mild ), lower leg (Negative Brent's Sign ) Details: normal to inspection; no erythema and no tenderness, ankle (+ankle dorsiflexion/plantarflexion ) Details: normal to inspection, no edema and normal ROM; no tenderness, no swelling and no ecchymosis and foot Details: normal capillary refill, normal to inspection, vascular exam Details: dorsalis pedis pulse present and motor-sensory exam Details: light-touch normal; no tenderness Left lower extremity: normal to inspection Psych: Mental Status: mental status grossly normal DS: Data Data Completed and Pending Labs on day of discharge: Labs from last 24 hours 11/07/23 06:23 WBC 16.2 H RBC 4.09 L Hgb 12.4 Hct 38.2 MCV 93.4 MCH 30.3 MCHC 32.5 RDW 13.2 Plt Count 277 MPV 9.6 Immature Gran % (Auto) 0.5 Neut % (Auto) 84.0 H Lymph % (Auto) 9.3 L [place] % (Auto) 5.9 Eos % (Auto) 0.1 Baso % (Auto) 0.2 Lymph # (Auto) 1.51 [place] # (Auto) 1.0 H Eos # (Auto) 0.0 Baso # (Auto) 0.0 Abs Immat Gran (auto) 0.08 H Absolute Neuts (auto) 13.6 H Absolute Nucleated RBC 0.000 Nucleated RBC % 0.0 Sodium 140 Potassium 3.9 Chloride 106 Carbon Dioxide 25 Anion Gap 9 BUN 14 Creatinine 0.80 Estim Creat Clear Calc 54 Estimated GFR > 60 Glucose 109 Calcium
== END 2023-11-07 14:10 | disposition home health service (06) ==
LOC: ANHSURGERY 08:40 → ANH3MEDSUR 14:41
PROVIDERS: PCP Family Medicine; Visit Provider Orthopaedic Surgery
PROC: (CPT 27447; principal; 2023-11-06 10:30)
DX: M17.11 Unilateral primary osteoarthritis, right knee (principal); G89.18 Other acute postprocedural pain; Z79.51 Long term (current) use of inhaled steroids; E66.9 Obesity, unspecified; Z68.36 Body mass index [BMI] 36.0-36.9, adult
CPT/HCPCS: 27447; 64447; 36415; 73560; 80048; 80307; 82040; 83036; 85025; 85610; 85730; 86850; 86900; 86901; 87641; 97110; 97161; 97165; 97535; A9270; C1713; C1776; J0171; J0690; J1100; J1170; J1200; J1596; J1885; J2250; J2270; J2405; J2704; J2795; J3010; J7120

== ENCOUNTER 2024-06-19 09:57 | Outpatient (CLI) | payer OTHER, MEDICARE, SELFPAY ==
--- OUTSIDE RECORDS SUMMARY | 2024-06-19 10:15 | XMS_ITS | Clinical Summary ---
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 Gender Identity Not on file Sexual Orientation Not on file Plan of Treatment Health Maintenance Due Date Last Done Comments DEXA Bone Density 1950 Hepatitis C Virus (HCV) Screening 1950 Colonoscopy 1997 Colorectal Cancer Screening 1997 Cologuard 2002 Immunochemical Fecal Occult Blood 2002 Mammogram 2002 Pneumococcal Immunization (5 0+ years) (1 of 1 - PCV) 2002 Zoster Immunization (1 of 2) 2002 Influenza Immunization (#1) 2024 SARS-COV-2 Immunization ( season) 2024 06/19/2021, 08/06/2020, 07/02/2020 Respiratory Syncytial Virus (RSV) Immunization (Adult) (1 - 1-dose 75+ series) 10/28/2027 DTaP/Tdap/Td Immunization Discontinued 02/06/2018 TdaP Immunization Completed 02/06/2018 Hepatitis B Immunization Aged Out No longer eligible based on patient's age to complete this topic Meningococcal Immunization (ACWY) Aged Out No longer eligible based on patient's age to complete this topic Rotavirus Immunization Aged Out No lo nger eligible based on patient's age to complete this topic Care Teams Concessions Manager Relationship Specialty Start Date End Date Ranjeet La MD [address] [address] PCP - General 05/22/07
--- NOTE | 2024-06-19 10:35 | ECG_ITS ---
Test Date: 2024-06-19 11:27:08 Measurements Intervals [place] Rate: 60 P: 33 AL: 173 QRS: -21 QRSD: 101 T: 28 QT: 413 QTc: 415 Interpretive Statements SINUS RHYTHM WITH OCCASIONAL SUPRAVENTRICULAR PREMATURE COMPLEXES BORDERLINE LEFT AXIS DEVIATION [QRS AXIS < -20] No previous ECG available for comparison Electronically Signed On 06-19-2024 14:39:35 CYLINDER LOADER by Марина Herrera M.D.
[2024-06-19 11:12] LABS: Add Urine Microscopic? YES; Appearance Urine Clear (Clear); Bacteria Urine None Seen /hpf; Bilirubin Urine Negative (Negative); Blood Urine Negative (Negative); Color Urine Yellow (Yellow); Glucose Urine UA Negative (Negative); Ketones Urine Negative (Negative); Leukocyte Esterase Ur 2+ LEU/UL (Negative); Nitrate Urine Negative (Negative); Protein Urine Negative (Negative); RBC Urine 0-2 /hpf (0-2); Squamous Epithelial Cell Urine Few /hpf (Few)
[2024-06-19 11:20] LABS: Basophils Absolute Auto 0.1 K/mm3 (0.0-0.1); Basophils Percent Auto 0.9 % (0.2-1.2); Eosinophils Absolute Auto 0.2 K/mm3 (0-0.3); Eosinophils Percent Auto 2.1 % (0-4.4); Hematocrit 45.4 % (37.0-47.0); Hemoglobin 14.5 g/dL (12.0-15.0); Immature Granulocyte Absolute 0.02 K/mm3 (0.00-0.031); Immature Granulocyte Percent A 0.2 % (0-0.5); Lymphocytes Absolute Auto 2.42 K/mm3 (0.9-3.2); Lymphocytes Percent Auto 29.8 % (18.3-44.2); Mean Corpuscular HGB Conc 31.9 g/dl (32-36); Mean Corpuscular Hemoglobin 29.5 pg (26-34); Mean Corpuscular Volume 92.3 fl (80-100); Mean Platelet Volume 9.9 fl (7.4-10.4); Monocytes Absolute Auto 0.6 K/mm3 (0.1-0.6); Monocytes Percent Auto 7.9 % (2.6-8.5); Neutrophils Absolute Auto 4.8 K/mm3 (1.3-6.7); Neutrophils Percent Auto 59.1 % (45.5-73.1); Platelet Count Result 279 k/mm3 (150-375); Red Blood Count 4.92 M/mm3 (4.2-5.4); Red Cell Distribution Width 13.2 % (11.5-14.5); White Blood Count 8.1 K/mm3 (4.5-10.0)
[2024-06-19 11:26] LABS: Anion Gap 13 mmol/L (4-12); Blood Urea Nitrogen 13 mg/dL (7-17); Calcium 10.4 mg/dL (8.4-10.2); Carbon Dioxide 26 mmol/L (22-30); Chloride 103 mmol/L (98-107); Estimated Glomerular Filt Rate > 60; Glucose 97 mg/dL (65-110); Potassium 4.1 mmol/L (3.4-5.0); Sodium 142 mmol/L (137-145)
== END 2024-06-19 09:58 | disposition home or self-care (01) ==
PROVIDERS: PCP Family Medicine; Visit Provider Nurse Practitioner Family
DX: R94.31 Abnormal electrocardiogram [ECG] [EKG] (principal); I10 Essential (primary) hypertension; R53.83 Other fatigue
CPT/HCPCS: 36415; 80048; 81001; 85025; 87086; 93005

== ENCOUNTER 2024-08-06 09:51 | Outpatient (CLI) | payer OTHER, MEDICARE, SELFPAY ==
--- NOTE | 2024-08-06 10:48 | ECG_ITS ---
Test Date: 2024-08-06 11:06:48 Measurements Intervals [place] Rate: 57 P: 80 WV: 145 QRS: -17 QRSD: 96 T: 7 QT: 413 QTc: 405 Interpretive Statements SINUS BRADYCARDIA WITH OCCASIONAL PAC Electronically Signed On 08-06-2024 12:12:02 CDT by Hemant Roth M.D.
[2024-08-06 11:30] LABS: Basophils Absolute Auto 0.1 K/mm3 (0.0-0.1); Basophils Percent Auto 0.7 % (0.2-1.2); Eosinophils Absolute Auto 0.2 K/mm3 (0-0.3); Eosinophils Percent Auto 2.1 % (0-4.4); Hematocrit 44.7 % (37.0-47.0); Hemoglobin 14.2 g/dL (12.0-15.0); Immature Granulocyte Absolute 0.02 K/mm3 (0.00-0.031); Immature Granulocyte Percent A 0.2 % (0-0.5); Lymphocytes Absolute Auto 2.55 K/mm3 (0.9-3.2); Lymphocytes Percent Auto 31.1 % (18.3-44.2); Mean Corpuscular HGB Conc 31.8 g/dl (32-36); Mean Corpuscular Hemoglobin 29.8 pg (26-34); Mean Corpuscular Volume 93.9 fl (80-100); Mean Platelet Volume 9.7 fl (7.4-10.4); Monocytes Absolute Auto 0.6 K/mm3 (0.1-0.6); Monocytes Percent Auto 7.3 % (2.6-8.5); Neutrophils Absolute Auto 4.8 K/mm3 (1.3-6.7); Neutrophils Percent Auto 58.6 % (45.5-73.1); Platelet Count Result 246 k/mm3 (150-375); Red Blood Count 4.76 M/mm3 (4.2-5.4); Red Cell Distribution Width 13.2 % (11.5-14.5); White Blood Count 8.2 K/mm3 (4.5-10.0)
[2024-08-06 11:42] LABS: Add Urine Microscopic? YES; Appearance Urine Clear (Clear); Bacteria Urine None Seen /hpf; Bilirubin Urine Negative (Negative); Blood Urine Negative (Negative); Color Urine Yellow (Yellow); Glucose Urine UA Negative (Negative); Ketones Urine Negative (Negative); Leukocyte Esterase Ur Trace LEU/UL (Negative); Nitrate Urine Negative (Negative); Non Pathogenic Casts 0-2; Protein Urine Negative (Negative); RBC Urine 0-2 /hpf (0-2); Specific Grav Ur 1.009 (1.001-1.035); Squamous Epithelial Cell Urine None Seen /hpf (Few); Urobilinogen Urine 0.2 mg/dL (<2.0); WBC Urine 0-5 /hpf (0-3)
[2024-08-06 11:45] LABS: Albumin Level 4.4 g/dL (3.5-5.1); Anion Gap 10 mmol/L (4-12); Blood Urea Nitrogen 15 mg/dL (7-17); Calcium 9.2 mg/dL (8.4-10.2); Carbon Dioxide 28 mmol/L (22-30); Chloride 101 mmol/L (98-107); Estimated Glomerular Filt Rate > 60; Glucose 99 mg/dL (65-110); Potassium 4.1 mmol/L (3.4-5.0); Sodium 139 mmol/L (137-145)
[2024-08-06 11:48] LABS: INR 0.9; Prothrombin Time 12.8 Seconds (11.1-14.7)
[2024-08-06 11:49] LABS: Partial Thromboplastin Time 26.7 Seconds (22.3-36.8)
[2024-08-06 11:51] LABS: Urine Cotinine NEGATIVE
[2024-08-06 12:42] LABS: Hemoglobin A1C 5.7 % (<5.7)
[2024-08-06 12:44] LABS: MRSA (PCR) NOT DETECTED (NOT DETECTE)
== END 2024-08-06 09:52 | disposition home or self-care (01) ==
LOC: ANHSURGERY 09:55
PROVIDERS: PCP Family Medicine; Visit Provider Orthopaedic Surgery
DX: Z01.818 Encounter for other preprocedural examination (principal); R00.1 Bradycardia, unspecified; M16.12 Unilateral primary osteoarthritis, left hip; I10 Essential (primary) hypertension
CPT/HCPCS: 80048; 80307; 81001; 82040; 83036; 85025; 85610; 85730; 86850; 86900; 86901; 87641; 93005

== ENCOUNTER 2024-08-17 09:30 | Outpatient (CLI) | payer OTHER, MEDICARE, SELFPAY ==
--- NOTE | 2024-08-17 09:33 | EST_ITS ---
Patient Info Name: Lanie Ho Age: 73 years : 1950 Gender: Female Ht: 60 in Wt: 164 lbs BSA: 1.81 m2 HR: 57 bpm BP: 134 / 78 mmHg Exam Date: 08/17/2024 9:47 AM Exam Location: Echo Lab Patient Status: Outpatient Admit Date: 08/17/2024 Staff Ordering Physician: Horace Paez MD Attending Provider: Horace Paez MD Exercise Technologist: trinity gimenez Exercise Physician: Tyrell Menard DO Exam Type: CA stress test treadmill Study Info Indications R00.1 - Bradycardia, unspecified A treadmill exercise stress test was performed. Summary 1. 1. Negative Joseph exercise stress test for ischemic ST changes by ECG criteria. 2. 2. Good functional capacity, achieving 7 METs of workload. 3. 3. Hypertensive response to exercise. 4. 4. Appropriate HR response to exercise. 5. 5. Appropriate HR recovery at 1 minute post exercise. 6. 6. No imaging with stress testing. 7. 7. Patient informed of the above results. Protocol: Joseph Stress ECG Details Stage: REST Duration (min): 0 min : 20 sec Speed (mph): 0.0 Grade (%): 0 HR (bpm): 55 SBP (mmHg): --- DBP (mmHg): --- METS: --- Stage: STAGE 1 Duration (min): 1 min : 0 sec Speed (mph): 1.7 Grade (%): 10 HR (bpm): 77 SBP (mmHg): 134 DBP (mmHg): 78 METS: --- Stage: STAGE 1 Duration (min): 2 min : 0 sec Speed (mph): 1.7 Grade (%): 10 HR (bpm): 97 SBP (mmHg): 134 DBP (mmHg): 78 METS: --- Stage: STAGE 1 Duration (min): 3 min : 0 sec Speed (mph): 1.7 Grade (%): 10 HR (bpm): 104 SBP (mmHg): 214 DBP (mmHg): 65 METS: --- Stage: STAGE 2 Duration (min): 1 min : 0 sec Speed (mph): 2.5 Grade (%): 12 HR (bpm): 117 SBP (mmHg): 214 DBP (mmHg): 65 METS: --- Stage: STAGE 2 Duration (min): 2 min : 0 sec Speed (mph): 2.5 Grade (%): 12 HR (bpm): 124 SBP (mmHg): 214 DBP (mmHg): 65 METS: --- Stage: RECOVERY Duration (min): 1 min : 0 sec Speed (mph): 0.0 Grade (%): 0 HR (bpm): 111 SBP (mmHg): 248 DBP (mmHg): 95 METS: --- Stage: RECOVERY Duration (min): 1 min : 34 sec Speed (mph): 0.0 Grade (%): 0 HR (bpm): 92 SBP (mmHg): 248 DBP (mmHg): 95 METS: --- Rest HR: 57 bpm Peak HR: 134 bpm Rest Sys BP: 134 mmHg Peak Sys BP: 248 mmHg Max Pred HR: 149 bpm % Max Pred HR: 90 % Target HR: 127 bpm Max RPP: 33,232 bpm*mmHg Valles Score: 1 BP Response: Patient exhibited a hypertensive response with stress Termination Reason: Reached target heart rate or workload Cardiac Symptoms: Shortness of breath Max ST Seg Deviation: 0.80 mm Total Time: 5 min : 0 sec Rest Batista BP: 78 mmHg Peak Batista BP: 95 mmHg Angina Score: None Total METS: 7.1 Resting ECG Sinus bradycardia. Stress ECG No ST changes. Arrhythmias None. Report Signatures
--- OUTSIDE RECORDS SUMMARY | 2024-08-17 10:22 | XMS_ITS | Clinical Summary ---
Author Organization 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
== END 2024-08-17 09:31 | disposition home or self-care (01) ==
LOC: ANHCARD 09:32
PROVIDERS: PCP Family Medicine; Visit Provider Family Medicine
DX: R00.1 Bradycardia, unspecified (principal); I10 Essential (primary) hypertension; R94.31 Abnormal electrocardiogram [ECG] [EKG]
CPT/HCPCS: 93017

== ENCOUNTER 2024-08-19 11:34 | Day surgery (SDC) | payer OTHER, MEDICARE, SELFPAY ==
[2024-08-06 10:06] VITALS: BMI 34.0
[2024-08-06 10:19] VITALS: BP 168/98; PULSE 56; RESP 16; TEMP 36.5; O2SAT 98
--- NOTE | 2024-08-06 10:35 | PC.NURSE ---
Report to the Outpatient Waiting Room, entrance under the green pavilion located off [facility], at time __0600am on date _08/19/24 . Planned Procedure Time: __0730am .? Time changes happen often and if your time is changed the preop area will call you the afternoon before. - You and your visitor will be asked to self-screen and do not enter if you have any COVID symptoms. Please call surgeon if you need to reschedule. - A mask is optional within the hospital at this time. Patients may have clear liquids (water, carbonated beverages, clear teas, apple juice) until 3 hours prior to surgery with a maximum of 20 ounces. - No food from midnight until time of surgery and no smoking, or chewing tobacco (or any form of nicotine). No chewing gum, candy or mints. (0430 am) Take only the following medications with a SIP of water on the morning of surgery: Tylenol if needed. DO NOT STOP ANY OF YOUR OTHER PRESCRIPTION MEDICATIONS PRIOR TO SURGERY EXCEPT THE FOLLOWING Hold all vitamins and supplements for 3 days per anesthesiologist. Date to take last dose____08/15/24 Please no make-up, nail german, hairspray, perfume, deodorant, or body powder the day of surgery.? No jewelry (including any body piercings) or valuables the day of surgery, leave them at home.? Please take a shower or bath the night before, or the morning of, surgery with an antibacterial soap.? Wear comfortable, loose fitting clothing.? HIBICLEANSE - Jewelry must be removed prior to entering the operating room.? Rings and piercings that are not removed may be cut off. - The hospital will not accept responsibility for valuables.? - Please leave all valuables, including medications, at home the day of surgery. If you are going home after surgery, a licensed local company intermodal truck driver must drive you home.? - NO public transportation without another adult if you receive anesthesia. - We recommend that an adult stay with you for 24 hours following discharge. - We also recommend that you do not drive, make important decision, drink alcoholic beverages, or take any drugs that were not prescribed by your health care provider for at least 24 hours after your discharge time. Follow any additional instructions given to you from your surgeon. Telephone instructions given to __Patient and asked if any additional questions and then verbalized understanding. Patient advised to call surgeon office or pre surgery nurse liaison [phone] if any additional questions.
[2024-08-19] VITALS (13 sets, daily range): BP systolic 110–154; BP diastolic 48–77; PULSE 33–83; RESP 12–18; TEMP 36.1–36.4; O2SAT 97–100
--- NOTE | ~2024-08-19 | XR_ITS ---
EXAMINATION: XR hip LT 1V DATE: 08/19/2024 10:52 INDICATION: Postoperative evaluation following left total hip arthroplasty TECHNIQUE: Anteroposterior view of the left hip was obtained. COMPARISON: 06/19/2024 FINDINGS: Interval placement of a left total hip arthroplasty which appears well seated in near anatomic alignm ent.The acetabular component is affixed with at least a single screw. Small amount of expected lucent soft tissue gas in the postoperative bed. No fractures identified. IMPRESSION: 1. Left total hip arthroplasty, negative for postoperative purposes. Reviewed, dictated and finalized at location A.
--- OUTSIDE RECORDS SUMMARY | 2024-08-19 00:47 | XMS_ITS | Clinical Summary ---
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
--- NOTE | 2024-08-19 06:41 | P.PNAN_ITS ---
Anes - Initial Pre Proc Eval Procedure: Operation Date: 08/19/24 07:30 Proposed Procedures p Left Total Hip Arthroplasty - Dominick Baron MD Date/Time: 08/19/24 06:41 Surgeon: Dominick Baron MD Pre Op Diagnosis: left hip oa Patient Data Age: 73 Gender: F Height: 1.52 m Weight: 77 kg Last Vital Signs Temp 36.4 C 08/19/24 06:30 Pulse 58 L 08/19/24 06:30 Resp 18 08/19/24 06:30 BP 153/61 H 08/19/24 06:30 Pulse Ox 97 08/19/24 06:30 O2 Del Method Room Air 08/19/24 06:30 Allergies Allergy/AdvReac Type Severity Reaction Status Date / Time No Known Allergies Allergy Verified 08/19/24 06:31 Home Medications ?Medication ?Instructions ?Recorded ?Confirmed ?Type ascorbic acid (vitamin C) 500 mg 500 mg PO DAILY 09/25/23 08/19/24 History capsule ibuprofen 400 mg tablet 600 mg PO Q6H PRN Pain 09/25/23 08/19/24 History [id number] 18 mg-FA 400 1 tablet PO DAILY 09/25/23 08/19/24 History mcg-calcium 500 mg-vit K 50 mcg tablet (Women's Multivitamin) acetaminophen 500 mg tablet 1,000 mg PO Q6H PRN Pain 10/23/23 08/19/24 History (Acetaminophen Extra Strength) calcium 600 mg capsule 600 mg PO BID 10/23/23 08/19/24 History chlorhexidine gluconate 4 % 1 applic topical DAILY #237 mL 08/07/24 08/19/24 Rx topical liquid (Hibiclens) Patient hx anesthesia problems: none Family hx anesthesia problems: none Results Review: All pre-operative results and documents have been reviewed as part of the pre- operative evaluation. [facility] Past Medical History Medical History Other fatigue Colon wall thickening Mass of hilum Cough Wheezing History of fracture of left ankle 2018 Primary osteoarthritis of right knee Surgical History Surgical History S/P total knee arthroplasty RT TKA 11/06/23 History of total left knee replacement 10/27/2014 History of total right hip arthroplasty 10/15/2012 Presence of left artificial knee joint Presence of right artificial hip joint Family History Family History Sibling Family history of premature coronary heart disease Other Cerebrovascular accident Family history of arthritis Family history of malignant neoplasm Social History Social History Smoking status: Never smoker Alcohol intake: never Substance use: never Substance use type: does not use Do You Feel Safe in your Home?: Yes Lack of Transportation: No Lack of Food: Never True Current Housing: I Have Housing Concerned About Future Housing: No Difficulty Paying Gas/Electric Bills: No Difficulty Paying for Meds: No Currently Unemployed: No Education: Don't Know Difficulty w/ Childcare or Family Care: No Living arrangements: with family Additional living arrangements comments: Occupation/Education: occupation 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 Informed Consent: The patient's anesthetic plan and its attendant risks and benefits were discussed with the patient/family/POA. Questions were solicited and answers provided to the satisfaction of the patient/family/POA.
[2024-08-19] MEDS: ACETAMINOPHEN 500 MG TABLET 1000 MG PO (06:55)
[2024-08-19] MEDS: LACTATED RINGERS 1,000 ML 30 ML IV CONT ×2 (07:02→10:33)
[2024-08-19] MEDS: TRANEXAMIC ACID 1,000MG/ISO100 1,000 MG/100 ML BAG 200 MG IVPB (07:07)
--- NOTE | 2024-08-19 07:19 | WPDHPUPDATE1 ---
History and Physical Update Update Date/Time: 08/19/24 07:19 History and Physical has been reviewed, including an updated exam of the patient. There are NO changes in the patient's condition. Risks, benefits, and alternatives have been discussed and questions answered. Patient agrees to proceed with procedure.
[2024-08-19] MEDS: ceFAZolin 2 GM/D5W 50 ML 2 GM/50 ML BAG IVPB ×2 (07:26→15:01)
[2024-08-19] MEDS: SODIUM CHLORIDE 0.9% IV 37.7 ML, MORPHINE SULFATE INJ (*CRX) 2 MG, ROPivacaine HCL 1% 2... INFILTRATE (08:24)
--- NOTE | 2024-08-19 10:35 | W.PM.PROC2 ---
Procedure Note - Detailed Date of Procedure 08/19/24 Pre-op Diagnosis left hip oa Post-op Diagnosis Same Procedure Performed L JOANIE Surgeon Dominick Baron MD Anesthesia General Description of Procedure THE PATIENT WAS TAKEN TO THE OPERATING ROOM IN STABLE CONDITION AND WAS PLACED IN THE LATERAL DECUBITUS AND THE LEFT LOWER EXTREMITY WAS PREPPED AND DRAPED IN THE STERILE FASHION. INCISION WAS MADE IN THE POSTERIOR LATERAL SIDE OF THE HIP, DOWN TO THE FASCIA LAYER. THE FASCIA WAS INCISED. THE HIP WAS EXPOSED. THE SHORT EXTERNAL ROTATORS WERE EXPOSED. THE SCIATIC NERVE WAS IDENTIFIED AND VISUALIZED THROUGHOUT THE PROCEDURE . THERE WAS A HIGH BIFURCATION OF THE NERVE. INCISION WAS MADE THROUGH THE SHORT EXTERNAL ROTATORS AND THE CAPSULE OF THE HIP JOINT. THE HIP WAS DISLOCATED. AN OSTEOTOMY WAS MADE TO THE FEMORAL NECK ABOUT 1 CM PROXIMAL TO THE LESSER TROCHANTER. THE ACETABULUM WAS EXPOSED. THERE WAS SEVERE DJD SEEN. BEGINNING WITH A 44 REAMER THE ACETABULUM WAS REAMED TO 47MM. A 48 MM TRIAL WAS PLACED IN 35 DEG OF ABDUCTION AND ANTEVERSION WAS IN ALIGNMENT WITH THE TRANS ACETABULAR LIGAMENT. THE FIT WAS EXCELLENT. THE TRIAL WAS REMOVED. A 48 MM BIOMET G7 COMPONENT WAS THEN TAPPED IN TO PLACE IN 35 DEG OF ABDUCTION AND ANTEVERSION IN ALIGNMENT WITH THE TRANSVERSE ACETABULAR LIGAMENT. THE FIT WAS EXCELLENT. ONE SCREW WAS PLACED THROUGH THE IMPLANT ,WITH AN EXCELLENT BITE. THE ACETABULAR LINER WAS PLACED AND CHECKED FOR STABILITY. NEXT THE FEMUR WAS PREPARED WITH INITIAL CANAL FINDER THEN SEQUENTIAL BROACHING WITH A TAPERLOC HIP SYSTEM, UNTIL A 6 BROACH FIT WELL IN 15 OF ANTEVERSION. A -3 STANDARD OFFSET NECK WITH 36 MM HEAD TRIAL WAS PLACED. THE SHUCK TEST WAS EXCELLENT AND THE STABILITY IN FLEXION AND ROTATION WAS EXCELLENT. LEG LENGTHS WERE GROSSLY EQUAL. TRIALS WERE REMOVED. A BIOMET TAPERLOC 6 STEM WAS PLACED WITH A STANDARD OFFSET NECK. THE FIT WAS EXCELLENT IN 15 DEG OF ANTEVERSION. A -3 CERAMIC 36 MM FEMORAL HEAD WAS PLACED. THE HIP WAS TRIALED AND THE STABILITY WAS EXCELLENT WERE THE LEG LENGTHS AND THE SHUCK TEST. THERE WAS NO EXCESSIVE TENSION ON THE SCIATIC NERVE. THE WOUND WAS IRRIGATED WITH STERILE BETADINE AND WATER FOR 3 MIN. THEN WASHED AGAIN. THE CAPSULE AND THE EXTERNAL ROTATORS WERE APPROXIMATED WITH NUMBER 1 VICRYL. THE FASCIA WITH No 2 QUIL AND THE SUB CUTANEOUS LAYER WITH 2-0 ABSORBABLE SUTURE WITH A RUNNING 3-0 SUBCUTICULAR LAYER WELL. DERMABOND WAS PLACED AND STERILE DRESSING WAS APPLIED. PATIENT WAS PLACED BACK ON TO THE SUPINE POSITION AND WAS EXTUBATED Estimated Blood Loss 200 Complications No immediate complications Condition Stable Disposition PACU
[2024-08-19] MEDS: SENNA/DOCUSATE SODIUM TABLET 2 TAB PO ×2 (11:55→16:43)
[2024-08-19] MEDS: SODIUM CHLORIDE 0.9% IV 1,000 ML 125 ML IV CONT (11:55)
[2024-08-19] MEDS: ASCORBIC ACID 500 MG TABLET PO (11:55)
[2024-08-19] MEDS: polyethylene glycoL 3350 17 GM POWD.PACK PO (11:55)
[2024-08-19] MEDS: KETOROLAC 15 MG/ML VIAL (*BKC) IV PUSH ×2 (11:55→16:43)
[2024-08-19] MEDS: ASPIRIN 81 MG ENTERIC TABLET PO ×2 (11:55→20:18)
[2024-08-19] MEDS: FAMOTIDINE 20 MG TABLET PO ×2 (11:55→20:18)
--- NOTE | 2024-08-19 12:06 | ADMGEN ---
This patient, Lanie Ho, was admitted to 3 [facility] Surg Room 313-01. Patient/family oriented to hospital policies and general routines including ID bracelet, bed and alarms, visiting hours, pain management, procedures, bathroom and other care routines, personal items, smoking policy, room service/diet, and visiting hours. Information on how to activate the Rapid Response Team has been discussed. Patient/Family are encouraged to report perceived risks to care and to ask questions if they do not understand what they are told or what they should do.
[2024-08-19] MEDS: ONDANSETRON INJ 4 MG/2 ML VIAL IV PUSH (14:34)
--- NOTE | 2024-08-19 16:15 | PM.CNCAR ---
Assessment and Plan Assessment and plan (1) Bradycardia: Code(s): R00.1 - Bradycardia, unspecified Status: Acute Assessment and Plan: Transient. Probably vagal induced or post anesthesia related bradycardia. No need for pacemaker, TCP, or atropine at this time. Monitor on telemetry. History of Present Illness History of Present Illness Consult date/time: 08/19/24 16:15 Reason For Visit: left hip oa Narrative: 73 yr old woman directly admitted for left hip surgery and had bradycardia post op. She has no cardiac history. Reports she is able to walk several blocks without any problems except left hip pain. Stated after surgery she was vomiting and it was noted HR got down as low as 33 bpm. Currently with sinus arrhythmia ranging 70-90 bpm. Denies chest pain, sob, orthopnea, PND, edema, dizziness, palpitations. Review of Systems Review of Systems: All systems reviewed & are unremarkable except as noted in HPI and below Constitutional: Constitutional: Reports as per HPI, Denies chills and Denies fever(s) Cardiovascular: Cardiovascular: Reports as per HPI, Denies chest pain and Denies irregular heart rhythm Respiratory: Respiratory: Reports as per HPI and Denies dyspnea Gastrointestinal: Gastrointestinal: Reports as per HPI, Denies abdominal pain, Reports nausea and Reports vomiting Genitourinary: Genitourinary: Reports as per HPI and Denies dysuria Musculoskeletal: Musculoskeletal: Reports as per HPI and Reports arthralgias Neurologic: Reports as per HPI, Denies dizziness and Denies syncope PMFSH Past Medical History Medical History Other fatigue Colon wall thickening Mass of hilum Cough Wheezing History of fracture of left ankle 2018 Primary osteoarthritis of right knee Surgical History Surgical History S/P total knee arthroplasty RT TKA 11/06/23 History of total left knee replacement 10/27/2014 History of total right hip arthroplasty 10/15/2012 Presence of left artificial knee joint Presence of right artificial hip joint Family History Family History Sibling Family history of premature coronary heart disease Other Cerebrovascular accident Family history of arthritis Family history of malignant neoplasm Social History Social History Smoking status: Never smoker Alcohol intake: never Substance use: never Substance use type: does not use Do You Feel Safe in your Home?: Yes Lack of Transportation: No Lack of Food: Never True Current Housing: I Have Housing Concerned About Future Housing: No Difficulty Paying Gas/Electric Bills: No Difficulty Paying for Meds: No Currently Unemployed: No Education: Don't Know Difficulty w/ Childcare or Family Care: No Living arrangements: with family Additional living arrangements comments: Occupation/Education: occupation 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[employer] Gender identity (if verbalized by the patient): Female Spiritual care concerns: No Meds Home Medications and Allergies Home Medications ?Medication ?Instructions ?Recorded ?Confirmed ?Type ascorbic acid (vitamin C) 500 mg 500 mg PO DAILY 09/25/23 08/19/24 History capsule ibuprofen 400 mg tablet 600 mg PO Q6H PRN Pain 09/25/23 08/19/24 History [id number] 18 mg-FA 400 1 tablet PO DAILY 09/25/23 08/19/24 History mcg-calcium 500 mg-vit K 50 mcg tablet (Women's Multivitamin) acetaminophen 500 mg tablet 1,000 mg PO Q6H PRN Pain 10/23/23 08/19/24 History (Acetaminophen Extra Strength) calcium 600 mg capsule 600 mg PO BID 10/23/23 08/19/24 History chlorhexidine gluconate 4 % 1 applic topical DAILY #237 mL 08/07/24 08/19/24 Rx topical liquid (Hibiclens) Allergies Allergy/AdvReac Type Severity Reaction Status Date / Time No Known Allergies Allergy Verified 08/19/24 06:31 Vital Signs Vital Signs - 24 hr 08/19/24 06:30 08/19/24 10:33 08/19/24 10:45 Temperature 97.6 F 97.3 F L Pulse Rate 58 L 78 68 Respiratory Rate 18 12 12 Blood Pressure 153/61 H 139/54 L 150/77 H Pulse Oximetry 97 100 100 Oxygen Delivery Room Air Simple Face Mask Simple Face Mask Oxygen Flow Rate 8 8 08/19/24 11:00 08/19/24 11:15 08/19/24 11:30 Temperature Pulse Rate 65 77 74 Respiratory Rate 12 14 15 Blood Pressure 143/71 H 154/54 H 139/65 Pulse Oximetry 100 100 99 Oxygen Delivery Simple Face Mask Room Air Room Air Oxygen Flow Rate 8 08/19/24 12:00 08/19/24 12:15 08/19/24 12:45 Temperature 97 F L 97 F L Pulse Rate 72 68 33 L Respiratory Rate 18 18 18 Blood Pressure 141/66 H 150/68 H 110/55 L Pulse Oximetry 99 98 100 Oxygen Delivery Oxygen Flow Rate 08/19/24 14:00 08/19/24 14:10 Temperature Pulse Rate Respiratory Rate Blood Pressure Pulse Oximetry Oxygen Delivery Room Air Room Air Oxygen Flow Rate Exam Const: General: cooperative, healthy appearing and comfortable Resp: Auscultation: clear to auscultation bilaterally, no crackles, no rales, no rhonchi and no wheezes Cardio: Rate: regular rate Rhythm: regular rhythm Heart sounds: no murmurs Peripheral pulses: dorsalis pedis present GI: GI Palp: No abdominal tenderness and Yes Soft to palpation Neuro: General: oriented to person, oriented to place and oriented to time Extrem: Right lower extremity: no edema Left lower extremity: no edema Results Labs and Meds Lab results: Intake and Output 08/19/24 08/19/24 08/19/24 07:59 15:59 23:59 Intake Total 150 100 Balance 150 100 Intake: IV 150 100 Lactated Ringers 1,000 ml @ 30 100 mls/hr IV CONT .Q24H [facility] Rx#: [id number] Tranexamic Acid 1,000Mg/Sgs951 100 1,000 mg In 100 ml @ 200 mls/hr IVPB ONCE ONE Rx#:[id number] ceFAZolin 2 GM/D5W 50 ML 2 gm 50 In 50 ml @ 100 mls/hr IVPB ONCE ONE Rx#:[id number] Other: Est. Blood Loss Amount 200 # Unmeasured Voids 1 Patient Weight 08/19/24 23:59 Weight 77 kg
--- NOTE | 2024-08-19 18:11 | P.CONIM_ITS ---
Assessment and Plan Assessment and plan (1) Degenerative joint disease of left hip: Qualifiers: Osteoarthritis type: primary Qualified Code(s): M16.12 - Unilateral primary osteoarthritis, left hip Code(s): M16.12 - Unilateral primary osteoarthritis, left hip Status: Acute Assessment and Plan: Underwent a total left hip arthroplasty on 08/19 with Loraine CHAUDHRY. Primary management via orthopedic team. - ambulate with assistance and up to chair - hip precautions in place - use IS - neurovasc checks - see order for intervals - SCDs - analgesics and antiemetic p.r.n. - monitor labs in AM - CBC and BMP - bowel regimen: docusate/senna, polyethylene glycol - PT/OT evaluation and treatment (2) Bradycardia: Code(s): R00.1 - Bradycardia, unspecified Status: Acute Assessment and Plan: - cardiology consulted for postoperative bradycardia, Derian CHAUDHRY provided the following recs: Bradycardia transient, likely vagally induced or postanesthesia related bradycardia. No current indication for pacemaker, TCP, or atropine. Monitor on telemetry. - telemetry ordered (3) HTN (hypertension): Qualifiers: Hypertension type: primary hypertension Qualified Code(s): I10 - Essential (primary) hypertension Code(s): I10 - Essential (primary) hypertension Status: Suspected Assessment and Plan: - had a previous history of hypertension per chart review of family practice notes. Has been elevated at most recent appointment, however felt to be due to stress. - not currently on antihypertensive medications - continue to monitor Plan The patient is reporting numbness only affecting the tip of her tongue, bilateral. No other focal neurological findings. No associated coughing or dysphagia postsurgery. Suspect paresthesias secondary to airway device used during operation. Patient educated on red flags symptoms to alert staff to (stroke-like symptoms). Diet: Regular GI Prophylaxis: Not currently indicated DVT Prophylaxis: SCDs Lines: Peripheral Code Status: Full code HPI Date of Consult Consult date: 08/19/24 Requesting Physician: Dominick Baron MD Primary Care Provider: Horace Paez MD Consult Narrative Reason for consult: Medical Management Narrative: 73 y/o F with PMH of osteoarthritis presents here for surgical management of her left hip. The patient reports chronic left hip pain for the past 2-3 years. Was not precipitated by trauma. She has previously tried some conservative treatment including [id number]-[id number]-[id number] NSAIDs, heat, and rest. However pain is interfering with her daily activities including weight-bearing. Pain worsens with sitting to standing (or vice versa), stairs, and she has stiffness with extended rest. She previously underwent a right total hip arthroplasty in 2012 with good results and uneventful recovery. Due to these factors she elected to move forward with surgical management. She underwent a left total hip arthroplasty today, 08/19. Postoperatively she reports nausea, vomiting, headache, and some lightheadedness. Headache described as frontal, dull, constant, and nonradiating. She is also reporting paraesthesias to the tip of her tongue, it is not unilateral and it is not accompanied by focal weakness, unilateral numbness, dysphagia, changes in speech, changes in vision, or dizziness. She denies any recent changes to her home medications or past medical history. No further complaints at this time. Preop VS: 97.7? F, HR 56, RR 16, 116/98, and 98% on RA. Preop workup: No leukocytosis, no anemia, normal coags, no significant electrolyte derangements, creatinine 0.82 and GFR >60, UA showed trace leuk esterase, and MRSA PCR negative. Review of Systems Review of Systems: All systems reviewed & are unremarkable except as noted in HPI and below PMFSH Past Medical History Medical History Colon wall thickening Mass of hilum History of fracture of left ankle 2017 Surgical History Surgical History History of total left hip arthroplasty 08/19/2024 S/P total knee arthroplasty RT TKA 11/06/23 History of total left knee replacement 10/27/2014 History of total right hip arthroplasty 10/15/2012 Presence of left artificial knee joint Presence of right artificial hip joint Family History Family History Sibling Family history of premature coronary heart disease Other Cerebrovascular accident Family history of arthritis Family history of malignant neoplasm Social History Social History Smoking status: Never smoker Alcohol intake: never Substance use: never Substance use type: does not use Do You Feel Safe in your Home?: Yes Lack of Transportation: No Lack of Food: Never True Current Housing: I Have Housing Concerned About Future Housing: No Difficulty Paying Gas/Electric Bills: No Difficulty Paying for Meds: No Currently Unemployed: No Education: Don't Know Difficulty w/ Childcare or Family Care: No Living arrangements: with family Additional living arrangements comments: Occupation/Education: occupation 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[employer] Gender identity (if verbalized by the patient): Female Spiritual care concerns: No Meds Home Medications and Allergies Home Medications ?Medication ?Instructions ?Recorded ?Confirmed ?Type ascorbic acid (vitamin C) 500 mg 500 mg PO DAILY 09/25/23 08/19/24 History capsule ibuprofen 400 mg tablet 600 mg PO Q6H PRN Pain 09/25/23 08/19/24 History [id number] 18 mg-FA 400 1 tablet PO DAILY 09/25/23 08/19/24 History mcg-calcium 500 mg-vit K 50 mcg tablet (Women's Multivitamin) acetaminophen 500 mg tablet 1,000 mg PO Q6H PRN Pain 10/23/23 08/19/24 History (Acetaminophen Extra Strength) calcium 600 mg capsule 600 mg PO BID 10/23/23 08/19/24 History chlorhexidine gluconate 4 % 1 applic topical DAILY #237 mL 08/07/24 08/19/24 Rx topical liquid (Hibiclens) Allergies Allergy/AdvReac Type Severity Reaction Status Date / Time No Known Allergies Allergy Verified 08/19/24 06:31 Vital Signs Vital Signs - 24 hr 08/19/24 06:30 08/19/24 10:33 08/19/24 10:45 Temperature 97.6 F 97.3 F L Pulse Rate 58 L 78 68 Respiratory Rate 18 12 12 Blood Pressure 153/61 H 139/54 L 150/77 H Pulse Oximetry 97 100 100 Oxygen Delivery Room Air Simple Face Mask Simple Face Mask Oxygen Flow Rate 8 8 08/19/24 11:00 08/19/24 11:15 08/19/24 11:30 Temperature Pulse Rate 65 77 74 Respiratory Rate 12 14 15 Blood Pressure 143/71 H 154/54 H 139/65 Pulse Oximetry 100 100 99 Oxygen Delivery Simple Face Mask Room Air Room Air Oxygen Flow Rate 8 08/19/24 12:00 08/19/24 12:15 08/19/24 12:45 Temperature 97 F L 97 F L Pulse Rate 72 68 33 L Respiratory Rate 18 18 18 Blood Pressure 141/66 H 150/68 H 110/55 L Pulse Oximetry 99 98 100 Oxygen Delivery Oxygen Flow Rate 08/19/24 14:00 08/19/24 14:10 08/19/24 16:00 Temperature Pulse Rate 83 Respiratory Rate Blood Pressure Pulse Oximetry Oxygen Delivery Room Air Room Air Oxygen Flow Rate Exam Const: General: comfortable and no acute distress Other: , female, nontoxic appearance HENMT: Face/Nose/Sinus: Normal nares present Mouth: Yes moist mucous membranes Eyes: General: appearance normal, both eyes and all related structures Sclera: sclerae normal Pupils: Equal, round and reactive pupils present EOM: EOMs intact bilaterally Resp: Effort & Inspection: normal respiratory effort Auscultation: clear to auscultation bilaterally Cardio: Rate: regular rate Rhythm: regular rhythm Other: S1-S2 present without murmur, rub, ectopy GI: Other: Abdomen soft, nondistended, nontender. Normoactive bowel sounds in all quadrants. Skin: General skin exam: normal color and no rashes or lesions noted Other: Postoperative incision to left hip, dressing CDI. Minimal edema. Neuro: Speech: normal speech Motor exam (neuro): 5/5 motor strength present throughout Other: A&O x4. No facial droop, dysarthria, or expressive aphasia noted. PERRLA. Normal sensation to extremities. + paresthesia to tip of her tongue (bilateral). Extrem: General: normal to inspection Psych: Mental Status: mental status grossly normal Affect: normal affect Other: Good insight and judgment, very pleasant Quality VTE Prophylaxis VTE prophylaxis: mechanical ordered Hospitalist [facility] Advance Care Plan I have confirmed that the patient's Advanced Care Plan is present, code status is documented, or surrogate decision maker is listed in patient medical record.: Yes Medication Reconciliation I have utilized all available resources to obtain, update and review the patients current medications (includes all prescriptions, OTC, herbals, cannabis, and nutritional supplements).: Yes
[2024-08-20] VITALS (7 sets, daily range): BP systolic 116–137; BP diastolic 46–57; PULSE 66–76; RESP 18; TEMP 36.6–37; O2SAT 97–100
[2024-08-20] MEDS: KETOROLAC 15 MG/ML VIAL (*BKC) IV PUSH ×3 (00:12→11:34)
[2024-08-20] MEDS: ceFAZolin 2 GM/D5W 50 ML 2 GM/50 ML BAG IVPB ×2 (00:13→09:34)
[2024-08-20 06:20] LABS: Basophils Percent Auto 0.2 % (0.2-1.2); Eosinophils Percent Auto 0.1 % (0-4.4); Hematocrit 32.8 % (37.0-47.0); Hemoglobin 10.5 g/dL (12.0-15.0); Immature Granulocyte Absolute 0.03 K/mm3 (0.00-0.031); Immature Granulocyte Percent A 0.2 % (0-0.5); Lymphocytes Absolute Auto 1.79 K/mm3 (0.9-3.2); Lymphocytes Percent Auto 13.5 % (18.3-44.2); Mean Corpuscular Hemoglobin 29.8 pg (26-34); Mean Corpuscular Volume 93.2 fl (80-100); Monocytes Absolute Auto 1.1 K/mm3 (0.1-0.6); Monocytes Percent Auto 8.6 % (2.6-8.5); Neutrophils Absolute Auto 10.3 K/mm3 (1.3-6.7); Neutrophils Percent Auto 77.4 % (45.5-73.1); Platelet Count Result 211 k/mm3 (150-375); Red Blood Count 3.52 M/mm3 (4.2-5.4); Red Cell Distribution Width 13.5 % (11.5-14.5); White Blood Count 13.3 K/mm3 (4.5-10.0)
[2024-08-20 06:27] LABS: Anion Gap 7 mmol/L (4-12); Blood Urea Nitrogen 12 mg/dL (7-17); Calcium 8.6 mg/dL (8.4-10.2); Carbon Dioxide 26 mmol/L (22-30); Chloride 107 mmol/L (98-107); Estimated CRCL calculation 57 ml/min; Estimated Glomerular Filt Rate > 60; Glucose 95 mg/dL (65-110); Sodium 140 mmol/L (137-145)
--- NOTE | 2024-08-20 07:56 | P.PNCA_ITS ---
Progress Note: A&P Assessment and Plan (1) Bradycardia: Code(s): R00.1 - Bradycardia, unspecified Status: Acute Assessment and Plan: Resolved. Transient. Probably vagal induced or post anesthesia related bradyc ardia. No need for pacemaker, TCP, or atropine at this time. Will sign off, please call with any questions. Subjective Date/time seen: 08/20/24 07:56 Interval history: Denies chest pain or sob. No more nausea or vomiting. Exam Const: General: cooperative, healthy appearing and comfortable Orientation/consciousness: oriented to person, oriented to place and oriented to time Resp: Auscultation: clear to auscultation bilaterally, no crackles, no rales, no rhonchi and no wheezes Cardio: Rate: regular rate Rhythm: regular rhythm Heart sounds: no murmurs Peripheral pulses: dorsalis pedis present Neuro: General: oriented to person, oriented to place and oriented to time Extrem: Right lower extremity: no edema Left lower extremity: no edema Objective Data Vital Signs Vital Signs: Vital Signs - 24 hr 08/19/24 10:33 08/19/24 10:45 08/19/24 11:00 Temperature 97.3 F L Pulse Rate 78 68 65 Respiratory Rate 12 12 12 Blood Pressure 139/54 L 150/77 H 143/71 H Pulse Oximetry 100 100 100 Oxygen Delivery Simple Face Mask Simple Face Mask Simple Face Mask Oxygen Flow Rate 8 8 8 08/19/24 11:15 08/19/24 11:30 08/19/24 12:00 Temperature 97 F L Pulse Rate 77 74 72 Respiratory Rate 14 15 18 Blood Pressure 154/54 H 139/65 141/66 H Pulse Oximetry 100 99 99 Oxygen Delivery Room Air Room Air Oxygen Flow Rate 08/19/24 12:15 08/19/24 12:45 08/19/24 14:00 Temperature 97 F L Pulse Rate 68 33 L Respiratory Rate 18 18 Blood Pressure 150/68 H 110/55 L Pulse Oximetry 98 100 Oxygen Delivery Room Air Oxygen Flow Rate 08/19/24 14:10 08/19/24 16:00 08/19/24 17:19 Temperature 97.1 F L Pulse Rate 83 33 L Respiratory Rate 18 Blood Pressure 123/48 L Pulse Oximetry 97 Oxygen Delivery Room Air Oxygen Flow Rate 08/19/24 20:00 08/19/24 21:15 08/20/24 00:00 Temperature 97.1 F L Pulse Rate 68 70 68 Respiratory Rate 18 Blood Pressure 120/56 L Pulse Oximetry 99 Oxygen Delivery Oxygen Flow Rate 08/20/24 00:25 08/20/24 04:00 08/20/24 04:16 Temperature 98.1 F 98.2 F Pulse Rate 66 73 68 Respiratory Rate 18 18 Blood Pressure 134/50 L 135/57 L Pulse Oximetry 100 98 Oxygen Delivery Oxygen Flow Rate Intake/Output Intake/Output: Intake & Output 08/17/24 08/18/24 08/19/24 08/20/24 23:59 23:59 23:59 23:59 Intake Total 540 200 Balance 540 200 Meds/Results Medications: Active Medications Generic Name Dose Route Start Last Admin Trade Name Freq PRN Reason Stop Dose Admin Acetaminophen 500 mg 08/19/24 11:34 Acetaminophen 500 Mg Tablet PO Q6H PRN Pain Rated 1-3 Ascorbic Acid 500 mg 08/19/24 11:34 08/19/24 11:55 Ascorbic Acid 500 Mg Tablet PO 500 mg DAILY MICAELA Administration Aspirin 81 mg 08/19/24 11:34 08/19/24 20:18 Aspirin 81 Mg Enteric Tablet PO 81 mg Q12HR MICAELA Administration Diazepam 5 mg 08/19/24 11:34 Diazepam (*Crx) 5 Mg Tablet PO Q6H PRN Anxiety/Muscle Spasm Diphenhydramine HCl 25 mg 08/19/24 11:34 Diphenhydramine Hcl Inj 50 Mg/Ml Vial IV PUSH Q6H PRN Itching Famotidine 20 mg 08/19/24 11:34 08/19/24 20:18 Famotidine 20 Mg Tablet PO 20 mg Q12HR MICAELA Administration Hydromorphone HCl 1 mg 08/19/24 11:34 Hydromorphone Hcl Inj (*Crx) 1 Mg/Ml Syr IV PUSH Q2H PRN Breakthrough Pain Rated 7-10 or NPO Hydromorphone HCl 0.5 mg 08/19/24 11:34 Hydromorphone Hcl Inj (*Crx) 1 Mg/Ml Syr IV PUSH Q2H PRN Breakthrough Pain Rated 4-6 or NPO Cefazolin Sodium 2 gm in 50 mls @ 100 mls/hr 08/19/24 16:00 08/20/24 00:13 Ancef 2 Gm/D5w 50 Ml IVPB 08/20/24 08:29 100 mls/hr Q8H MICAELA Administration Ibuprofen 800 mg in 200 mls @ 400 mls/hr 08/20/24 12:00 Caldolor 800 Mg/200 Ml IVPB Q6H PRN Breakthrough Pain Rated 1-3 or NPO Ketorolac Tromethamine 15 mg 08/19/24 12:00 08/20/24 05:40 Ketorolac 15 Mg/Ml Vial (*Bkc) IV PUSH 08/20/24 12:01 15 mg Q6HR MICAELA Administration Naloxone HCl 0.1 mg 08/19/24 11:34 Naloxone Hcl 0.4 Mg/Ml Vial IV PUSH Q2M PRN Opiate Reversal Ondansetron HCl 4 mg 08/19/24 11:34 08/19/24 14:34 Ondansetron Inj 4 Mg/2 Ml Vial IV PUSH 4 mg Q4H PRN Administration Nausea And Vomiting Oxycodone/Acetaminophen 1 tablet 08/19/24 11:34 Oxycodone/Acetaminophen (*Crx) 5-325 Mg Tablet PO Q4H PRN Pain Rated 4-6 Oxycodone/Acetaminophen 1 tab 08/19/24 11:34 Oxycodone/Acetaminophen (*Crx) 10-325 Mg Tablet PO Q6H PRN Pain Rated 7-10 Polyethylene Glycol 17 gm 08/19/24 11:34 08/19/24 11:55 Polyethylene Glycol 3350 17 Gm Powd.Pack PO 17 gm QAM MICAELA Administration Senna/Docusate Sodium 2 tab 08/19/24 11:34 08/19/24 16:43 Senna/Docusate Sodium Tablet PO 2 tab BID MICAELA Administration Radiology Results: ITS Impressions Hip X-Ray 08/19/24 10:53 IMPRESSION: 1. Left total hip arthroplasty, negative for postoperative purposes. Labs Labs: Laboratory Results - last 24 hr 08/20/24 05:39 WBC 13.3 H RBC 3.52 L Hgb 10.5 L D Hct 32.8 L MCV 93.2 MCH 29.8 MCHC 32.0 RDW 13.5 Plt Count 211 MPV 10.0 Immature Gran % (Auto) 0.2 Neut % (Auto) 77.4 H Lymph % (Auto) 13.5 L [place] % (Auto) 8.6 H Eos % (Auto) 0.1 Baso % (Auto) 0.2 Lymph # (Auto) 1.79 [place] # (Auto) 1.1 H Eos # (Auto) 0.0 Baso # (Auto) 0.0 Abs Immat Gran (auto) 0.03 Absolute Neuts (auto) 10.3 H Absolute Nucleated RBC 0.000 Nucleated RBC % 0.0 Sodium 140 Potassium 4.0 Chloride 107 Carbon Dioxide 26 Anion Gap 7 BUN 12 Creatinine 0.72 Estim Creat Clear Calc 57 Estimated GFR > 60 Glucose 95 Calcium 8.6
--- OUTSIDE RECORDS SUMMARY | 2024-08-20 08:08 | XMS_ITS | Clinical Summary ---
Author Organization [facility] Address [address] [place] [address] Care Team Providers Care Dipper And Drier Name Role Phone Ranjeet La MD Primary Care Provider [phone] Immunizations Immunization Administration Dates Next Due Covid-19, Mrna, Lnp-s, PF, 5 0 mcg/0.25 mL dose (Moderna) 06/19/2021 Social History Tobacco Use Types Packs/Day Years Used Date Smoking Tobacco: Never Assessed Comments Unknown Sex and Gender Information Value Date Recorded Sex Assigned at Not on file Legal Sex Female 3:29 AM [employer] Gender Identity Not on file Sexual Orientation [...] age to complete this topic Care Teams Dipper And Drier Relationship Specialty Start Date End Date Ranjeet La MD [id number] [id number] PCP - General 05/22/07
--- NOTE | 2024-08-20 09:05 | P.PNIM_ITS ---
Progress Note: A&P Assessment and Plan (1) Degenerative joint disease of left hip: Qualifiers: Osteoarthritis type: primary Qualified Code(s): M16.12 - Unilateral primary osteoarthritis, left hip Code(s): M16.12 - Unilateral primary osteoarthritis, left hip Status: Acute Assessment and Plan: Underwent a total left hip arthroplasty on 08/19 with Loraine CHAUDHRY. Primary management via orthopedic team. - ambulate with assistance and up to chair - hip precautions in place - use IS - neurovasc checks - see order for intervals - SCDs - analgesics and antiemetic p.r.n. - monitor labs in AM - CBC and BMP - bowel regimen: docusate/senna, polyethylene glycol - PT/OT evaluation and treatment patient being discharged per Orthopedics (2) Bradycardia: Code(s): R00.1 - Bradycardia, unspecified Status: Acute Assessment and Plan: - cardiology consulted for postoperative bradycardia, Derian CHAUDHRY provided the following recs: Bradycardia transient, likely vagally induced or postanesthesia related bradycardia. No current indication for pacemaker, TCP, or atropine. Monitor on telemetry. - telemetry ordered (3) HTN (hypertension): Qualifiers: Hypertension type: primary hypertension Qualified Code(s): I10 - Essen tial (primary) hypertension Code(s): I10 - Essential (primary) hypertension Status: Suspected Assessment and Plan: - had a previous history of hypertension per chart review of family practice notes. Has been elevated at most recent appointment, however felt to be due to stress. - not currently on antihypertensive medications - continue to monitor Plan The patient is reporting numbness only affecting the tip of her tongue, bilateral. No other focal neurological findings. No associated coughing or dysphagia postsurgery. Suspect paresthesias secondary to airway device used during operation. Patient educated on red flags symptoms to alert staff to (stroke-like symptoms). Diet: Regular GI Prophylaxis: Not currently indicated DVT Prophylaxis: SCDs Lines: Peripheral Code Status: Full code Time Spent With Patient Time with patient: 25 - 35 minutes Subjective Date/time seen: 08/20/24 09:05 Interval history: 73 y/o F with PMH of osteoarthritis presents here for surgical management of her left hip. with symptomatic bradycardia after surgery. Per Cardiology Resolved. Transient. Probably vagal induced or post anesthesia related bradycardia.No need for pacemaker, TCP, or atropine at this time. patient has no complaints this morning Review of Systems Review of Systems: All systems reviewed & are unremarkable except as noted in HPI and below Exam Narrative: General: well appearing, appears stated age. HEENT: normocephalic, atraumatic. Mucous membranes moist. EOMI, PERRLA, bilateral sclera anicteric, no conjunctival injection. Neck supple without JVD, lymphadenopathy, or bruit. Respiratory: clear to ascultation bilaterally. No rales/rhonic/wheezes. Cardiovascular: Regular rate and rhythm, normal S1-S2 upon ascultation. No murmurs, rubs, or clicks. PMI is nondisplaced, capillary refill less than 3 second. Abdomen: Soft, round, no pulsatile masses, nondistended and nontender. No rebound, no guarding. No CVA tenderness, no hepatosplenomegaly. Bowel sounds present to all four quadrants. No high pitch or tinkling sounds, resonant to percussion. Extremities: No cyanosis, clubbing, or edema present. Pulses are palpable 2/2. Left thigh surgical dressing clean dry intact Neuro: Alert and orientated x 4. PERRLA. Cranial nerves 2-12 intact without focal deficit. Skin: Warm, dry, and intact, without rash, erythema, or lesion. Psych: pleasant, cooperative, normal speech, normal affect, no hallucinations, no dysarthia Objective Data Vital Signs Vital Signs: Vital Signs - 24 hr 08/19/24 10:33 08/19/24 10:45 08/19/24 11:00 Temperature 97.3 F L Pulse Rate 78 68 65 Respiratory Rate 12 12 12 Blood Pressure 139/54 L 150/77 H 143/71 H Pulse Oximetry 100 100 100 Oxygen Delivery Simple Face Mask Simple Face Mask Simple Face Mask Oxygen Flow Rate 8 8 8 08/19/24 11:15 08/19/24 11:30 08/19/24 12:00 Temperature 97 F L Pulse Rate 77 74 72 Respiratory Rate 14 15 18 Blood Pressure 154/54 H 139/65 141/66 H Pulse Oximetry 100 99 99 Oxygen Delivery Room Air Room Air Oxygen Flow Rate 08/19/24 12:15 08/19/24 12:45 08/19/24 14:00 Temperature 97 F L Pulse Rate 68 33 L Respiratory Rate 18 18 Blood Pressure 150/68 H 110/55 L Pulse Oximetry 98 100 Oxygen Delivery Room Air Oxygen Flow Rate 08/19/24 14:10 08/19/24 16:00 08/19/24 17:19 Temperature 97.1 F L Pulse Rate 83 33 L Respiratory Rate 18 Blood Pressure 123/48 L Pulse Oximetry 97 Oxygen Delivery Room Air Oxygen Flow Rate 08/19/24 20:00 08/19/24 21:15 08/20/24 00:00 Temperature 97.1 F L Pulse Rate 68 70 68 Respiratory Rate 18 Blood Pressure 120/56 L Pulse Oximetry 99 Oxygen Delivery Oxygen Flow Rate 08/20/24 00:25 08/20/24 04:00 08/20/24 04:16 Temperature 98.1 F 98.2 F Pulse Rate 66 73 68 Respiratory Rate 18 18 Blood Pressure 134/50 L 135/57 L Pulse Oximetry 100 98 Oxygen Delivery Oxygen Flow Rate 08/20/24 08:33 Temperature 98.6 F Pulse Rate 76 Respiratory Rate 18 Blood Pressure 116/46 L Pulse Oximetry 97 Oxygen Delivery Oxygen Flow Rate Intake/Output Intake/Output: Intake & Output 08/17/24 08/18/24 08/19/24 08/20/24 23:59 23:59 23:59 23:59 Intake Total 540 440 Balance 540 440 Meds/Results Medications: Active Medications Generic Name Dose Route Start Last Admin Trade Name Freq PRN Reason Stop Dose Admin Acetaminophen 500 mg 08/19/24 11:34 Acetaminophen 500 Mg Tablet PO Q6H PRN Pain Rated 1-3 Ascorbic Acid 500 mg 08/19/24 11:34 08/19/24 11:55 Ascorbic Acid 500 Mg Tablet PO 500 mg DAILY MICAELA Administration Aspirin 81 mg 08/19/24 11:34 08/19/24 20:18 Aspirin 81 Mg Enteric Tablet PO 81 mg Q12HR MICAELA Administration Diazepam 5 mg 08/19/24 11:34 Diazepam (*Crx) 5 Mg Tablet PO Q6H PRN Anxiety/Muscle Spasm Diphenhydramine HCl 25 mg 08/19/24 11:34 Diphenhydramine Hcl Inj 50 Mg/Ml Vial IV PUSH Q6H PRN Itching Famotidine 20 mg 08/19/24 11:34 08/19/24 20:18 Famotidine 20 Mg Tablet PO 20 mg Q12HR MICAELA Administration Hydromorphone HCl 1 mg 08/19/24 11:34 Hydromorphone Hcl Inj (*Crx) 1 Mg/Ml Syr IV PUSH Q2H PRN Breakthrough Pain Rated 7-10 or NPO Hydromorphone HCl 0.5 mg 08/19/24 11:34 Hydromorphone Hcl Inj (*Crx) 1 Mg/Ml Syr IV PUSH Q2H PRN Breakthrough Pain Rated 4-6 or NPO Ibuprofen 800 mg in 200 mls @ 400 mls/hr 08/20/24 12:00 Caldolor 800 Mg/200 Ml IVPB Q6H PRN Breakthrough Pain Rated 1-3 or NPO Ketorolac Tromethamine 15 mg 08/19/24 12:00 08/20/24 05:40 Ketorolac 15 Mg/Ml Vial (*Bkc) IV PUSH 08/20/24 12:01 15 mg Q6HR MICAELA Administration Naloxone HCl 0.1 mg 08/19/24 11:34 Naloxone Hcl 0.4 Mg/Ml Vial IV PUSH Q2M PRN Opiate Reversal Ondansetron HCl 4 mg 08/19/24 11:34 08/19/24 14:34 Ondansetron Inj 4 Mg/2 Ml Vial IV PUSH 4 mg Q4H PRN Administration Nausea And Vomiting Oxycodone/Acetaminophen 1 tablet 08/19/24 11:34 Oxycodone/Acetaminophen (*Crx) 5-325 Mg Tablet PO Q4H PRN Pain Rated 4-6 Oxycodone/Acetaminophen 1 tab 08/19/24 11:34 Oxycodone/Acetaminophen (*Crx) 10-325 Mg Tablet PO Q6H PRN Pain Rated 7-10 Polyethylene Glycol 17 gm 08/19/24 11:34 08/19/24 11:55 Polyethylene Glycol 3350 17 Gm Powd.Pack PO 17 gm QAM MICAELA Administration Senna/Docusate Sodium 2 tab 08/19/24 11:34 08/19/24 16:43 Senna/Docusate Sodium Tablet PO 2 tab BID MICAELA Administration Radiology Results: ITS Impressions Hip X-Ray 08/19/24 10:53 IMPRESSION: 1. Left total hip arthroplasty, negative for postoperative purposes. Labs Labs: Laboratory Results - last 24 hr 08/20/24 05:39 WBC 13.3 H RBC 3.52 L Hgb 10.5 L D Hct 32.8 L MCV 93.2 MCH 29.8 MCHC 32.0 RDW 13.5 Plt Count 211 MPV 10.0 Immature Gran % (Auto) 0.2 Neut % (Auto) 77.4 H Lymph % (Auto) 13.5 L [place] % (Auto) 8.6 H Eos % (Auto) 0.1 Baso % (Auto) 0.2 Lymph # (Auto) 1.79 [place] # (Auto) 1.1 H Eos # (Auto) 0.0 Baso # (Auto) 0.0 Abs Immat Gran (auto) 0.03 Absolute Neuts (auto) 10.3 H Absolute Nucleated RBC 0.000 Nucleated RBC % 0.0 Sodium 140 Potassium 4.0 Chloride 107 Carbon Dioxide 26 Anion Gap 7 BUN 12 Creatinine 0.72 Estim Creat Clear Calc 57 Estimated GFR > 60 Glucose 95 Calcium 8.6 Quality VTE Prophylaxis VTE prophylaxis: mechanical ordered Hospitalist MIPS Advance Care Plan I have confirmed that the patient's Advanced Care Plan is present, code status is documented, or surrogate decision maker is listed in patient medical record.: Yes Medication Reconciliation I have utilized all available resources to obtain, update and review the patients current medications (includes all prescriptions, OTC, herbals, cannabis, and nutritional supplements).: Yes
[2024-08-20] MEDS: ASCORBIC ACID 500 MG TABLET PO (09:34)
[2024-08-20] MEDS: SENNA/DOCUSATE SODIUM TABLET 2 TAB PO (09:34)
[2024-08-20] MEDS: polyethylene glycoL 3350 17 GM POWD.PACK PO (09:34)
[2024-08-20] MEDS: FAMOTIDINE 20 MG TABLET PO (09:34)
[2024-08-20] MEDS: ASPIRIN 81 MG ENTERIC TABLET PO (09:34)
[2024-08-20] MEDS: oxyCODONE/ACETAMINOPHEN (*CRX) 5-325 MG TABLET 1 TABLET PO (09:44)
--- NOTE | 2024-08-20 10:02 | P.PNOP_ITS ---
Progress Note: A&P Assessment and Plan (1) S/P total hip arthroplasty: Qualifiers: Laterality: left Qualified Code(s): Z96.642 - Presence of left artificial hip joint Code(s): Z96.649 - Presence of unspecified artificial hip joint Status: Acute Assessment and Plan: POD #1 : Left JOANIE Continue PT/OT. WBAT. Walker. HIGH FALL RISK. Continue pain control. Ice Hip. Protect skin. DVT prophylaxis with Aspirin. SCDs. Incentive Spirometry Use reviewed. Monitor Dressing. Change prior to discharge. Bowel Regimen. Dispo: Home with Home Health pending progress with PT/OT (2) Bradycardia: Code(s): R00.1 - Bradycardia, unspecified Status: Acute Assessment and Plan: Cleared by cardiology. Resolved. Plan Reviewed history, exam, radiographs and current labs with attending MD and covering surgeon, Dr. Baron, who agrees with current plan as indicated above. No further recommendations from Dr. Baron at this time. Time Spent With Patient Time with patient: less than 15 minutes Subjective Subjective Date/Time Seen: 08/20/24 10:02 Post Op day: 1 Interval history: POD #1: Left JOANIE Patient doing well. Pain well controlled. Evaluated by cardiology. Review of Systems Review of Systems: All systems reviewed & are unremarkable except as noted in HPI and below Constitutional: Constitutional: Denies chills, Denies fever(s), Denies headache(s) and Denies lethargy ENT: Denies headache(s) Cardiovascular: Cardiovascular: Denies chest pain, Denies diaphoresis, Denies lightheadedness, Denies palpitations, Denies dyspnea and Denies dyspnea on exertion Respiratory: Respiratory: Denies cough, Denies dyspnea and Denies dyspnea on exertion Gastrointestinal: Gastrointestinal: Denies constipation, Denies diarrhea, Denies nausea and Denies vomiting Genitourinary: Genitourinary: Reports urinary frequency, Denies dysuria and Denies urinary hesitancy Musculoskeletal: Musculoskeletal: Reports joint swelling (Right Hip ) and Reports limited range of motion (Right Hip due to recent surgery ) Neurologic: Denies headache(s) and Reports weakness Endocrine: Endocrine: Denies palpitations Exam Const: General: comfortable and no acute distress Resp: Effort & Inspection: normal respiratory effort Cardio: Rate: regular rate Rhythm: regular rhythm GI: Inspection: non-distended Skin: General skin exam: normal color Other: Incision right hip c/d/i. Surrounding tissue without redness/warmth. Mild swelling consistent with recent surgery. No drainage. Neuro: Cognition (Neuro): normal cognition Speech: normal speech Extrem: Right lower extremity: normal to inspection, normal capillary refill, hip/thigh Details: tenderness Location: of the hip (Thigh soft ) Location: laterally and anteriorly, swelling Location: at the hip, abnormal ROM (limited consistent with recent surgery ) Details: pain with active ROM during and pain with passive ROM during and other (Incision c/d/i. ); no deformity and no unusual warmth, knee Details: normal to inspection; no tenderness and no swelling, lower leg (Negative Brent's Sign ) Details: normal to inspection and no edema; no tenderness, ankle (+ankle dorsiflexion/plantarflexion) Details: normal to inspection and no edema; no tenderness, no swelling and no ecchymosis and foot Details: normal capillary refill, toes with normal ROM, vascular exam Details: dorsalis pedis pulse present and motor-sensory exam Details: light- touch normal; no tenderness Objective Data Vital Signs Vital Signs: Vital Signs - 24 hr 08/19/24 10:33 08/19/24 10:45 08/19/24 11:00 Temperature 36.3 C L Pulse Rate 78 68 65 Respiratory Rate 12 12 12 Blood Pressure 139/54 L 150/77 H 143/71 H Pulse Oximetry 100 100 100 Oxygen Delivery Simple Face Mask Simple Face Mask Simple Face Mask Oxygen Flow Rate 8 8 8 08/19/24 11:15 08/19/24 11:30 08/19/24 12:00 Temperature 36.1 C L Pulse Rate 77 74 72 Respiratory Rate 14 15 18 Blood Pressure 154/54 H 139/65 141/66 H Pulse Oximetry 100 99 99 Oxygen Delivery Room Air Room Air Oxygen Flow Rate 08/19/24 12:15 08/19/24 12:45 08/19/24 14:00 Temperature 36.1 C L Pulse Rate 68 33 L Respiratory Rate 18 18 Blood Pressure 150/68 H 110/55 L Pulse Oximetry 98 100 Oxygen Delivery Room Air Oxygen Flow Rate 08/19/24 14:10 08/19/24 16:00 08/19/24 17:19 Temperature 36.2 C L Pulse Rate 83 33 L Respiratory Rate 18 Blood Pressure 123/48 L Pulse Oximetry 97 Oxygen Delivery Room Air Oxygen Flow Rate 08/19/24 20:00 08/19/24 21:15 08/20/24 00:00 Temperature 36.2 C L Pulse Rate 68 70 68 Respiratory Rate 18 Blood Pressure 120/56 L Pulse Oximetry 99 Oxygen Delivery Oxygen Flow Rate 08/20/24 00:25 08/20/24 04:00 08/20/24 04:16 Temperature 36.7 C 36.8 C Pulse Rate 66 73 68 Respiratory Rate 18 18 Blood Pressure 134/50 L 135/57 L Pulse Oximetry 100 98 Oxygen Delivery Oxygen Flow Rate 08/20/24 08:33 Temperature 37.0 C Pulse Rate 76 Respiratory Rate 18 Blood Pressure 116/46 L Pulse Oximetry 97 Oxygen Delivery Oxygen Flow Rate Intake/Output Intake/Output: Intake & Output 08/17/24 08/18/24 08/19/24 08/20/24 23:59 23:59 23:59 23:59 Intake Total 540 490 Balance 540 490 Meds/Results Medications: Active Medications Generic Name Dose Route Start Last Admin Trade Name Freq PRN Reason Stop Dose Admin Acetaminophen 500 mg 08/19/24 11:34 Acetaminophen 500 Mg Tablet PO Q6H PRN Pain Rated 1-3 Ascorbic Acid 500 mg 08/19/24 11:34 08/20/24 09:34 Ascorbic Acid 500 Mg Tablet PO 500 mg DAILY MICAELA Administration Aspirin 81 mg 08/19/24 11:34 08/20/24 09:34 Aspirin 81 Mg Enteric Tablet PO 81 mg Q12HR MICAELA Administration Diazepam 5 mg 08/19/24 11:34 Diazepam (*Crx) 5 Mg Tablet PO Q6H PRN Anxiety/Muscle Spasm Diphenhydramine HCl 25 mg 08/19/24 11:34 Diphenhydramine Hcl Inj 50 Mg/Ml Vial IV PUSH Q6H PRN Itching Famotidine 20 mg 08/19/24 11:34 08/20/24 09:34 Famotidine 20 Mg Tablet PO 20 mg Q12HR MICAELA Administration Hydromorphone HCl 1 mg 08/19/24 11:34 Hydromorphone Hcl Inj (*Crx) 1 Mg/Ml Syr IV PUSH Q2H PRN Breakthrough Pain Rated 7-10 or NPO Hydromorphone HCl 0.5 mg 08/19/24 11:34 Hydromorphone Hcl Inj (*Crx) 1 Mg/Ml Syr IV PUSH Q2H PRN Breakthrough Pain Rated 4-6 or NPO Ibuprofen 800 mg in 200 mls @ 400 mls/hr 08/20/24 12:00 Caldolor 800 Mg/200 Ml IVPB Q6H PRN Breakthrough Pain Rated 1-3 or NPO Ketorolac Tromethamine 15 mg 08/19/24 12:00 08/20/24 05:40 Ketorolac 15 Mg/Ml Vial (*Bkc) IV PUSH 08/20/24 12:01 15 mg Q6HR MICAELA Administration Naloxone HCl 0.1 mg 08/19/24 11:34 Naloxone Hcl 0.4 Mg/Ml Vial IV PUSH Q2M PRN Opiate Reversal Ondansetron HCl 4 mg 08/19/24 11:34 08/19/24 14:34 Ondansetron Inj 4 Mg/2 Ml Vial IV PUSH 4 mg Q4H PRN Administration Nausea And Vomiting Oxycodone/Acetaminophen 1 tablet 08/19/24 11:34 08/20/24 09:44 Oxycodone/Acetaminophen (*Crx) 5-325 Mg Tablet PO 1 tablet Q4H PRN Administration Pain Rated 4-6 Oxycodone/Acetaminophen 1 tab 08/19/24 11:34 Oxycodone/Acetaminophen (*Crx) 10-325 Mg Tablet PO Q6H PRN Pain Rated 7-10 Polyethylene Glycol 17 gm 08/19/24 11:34 08/20/24 09:34 Polyethylene Glycol 3350 17 Gm Powd.Pack PO 17 gm QAM MICAELA Administration Senna/Docusate Sodium 2 tab 08/19/24 11:34 08/20/24 09:34 Senna/Docusate Sodium Tablet PO 2 tab BID MICAELA Administration Radiology Results: ITS Impressions Hip X-Ray 08/19/24 10:53 IMPRESSION: 1. Left total hip arthroplasty, negative for postoperative purposes. Labs Labs: Laboratory Results - last 24 hr 08/20/24 05:39 WBC 13.3 H RBC 3.52 L Hgb 10.5 L D Hct 32.8 L MCV 93.2 MCH 29.8 MCHC 32.0 RDW 13.5 Plt Count 211 MPV 10.0 Immature Gran % (Auto) 0.2 Neut % (Auto) 77.4 H Lymph % (Auto) 13.5 L [place] % (Auto) 8.6 H Eos % (Auto) 0.1 Baso % (Auto) 0.2 Lymph # (Auto) 1.79 [place] # (Auto) 1.1 H Eos # (Auto) 0.0 Baso # (Auto) 0.0 Abs Immat Gran (auto) 0.03 Absolute Neuts (auto) 10.3 H Absolute Nucleated RBC 0.000 Nucleated RBC % 0.0 Sodium 140 Potassium 4.0 Chloride 107 Carbon Dioxide 26 Anion Gap 7 BUN 12 Creatinine 0.72 Estim Creat Clear Calc 57 Estimated GFR > 60 Glucose 95 Calcium 8.6 Quality VTE Prophylaxis VTE prophylaxis: mechanical ordered
== END 2024-08-20 13:55 | disposition home health service (06) ==
LOC: ANHSURGERY 08-20 07:58 → ANH3MEDSUR 08-20 08:06
PROVIDERS: PCP Family Medicine; Visit Provider Orthopaedic Surgery
PROC: (CPT 27130; principal; 2024-08-19 07:30)
DX: M16.12 Unilateral primary osteoarthritis, left hip (principal); R00.1 Bradycardia, unspecified; I97.191 Other postprocedural cardiac functional disturbances following other surgery; Y83.8 Other surgical procedures as the cause of abnormal reaction of the patient, or of later complication, without mention of misadventure at the time of the procedure; I10 Essential (primary) hypertension
CPT/HCPCS: 27130; 36415; 73501; 80048; 85025; 97110; 97116; 97161; 97166; 97530; 97535; A9270; C1713; C1776; J0171; J0690; J1100; J1171; J1885; J2250; J2270; J2405; J2704; J2795; J3010; J7030; J7120